=== PATIENT | female | born 2000 | race Caucasian/White ===

== ENCOUNTER 2021-03-15 08:00 | Outpatient (CLI) | payer MEDICAID, OTHER ==
[2021-03-15 12:45] LABS: BASOPHILS # (AUTO) 0.1 10^3/uL (0.0-0.1); BASOPHILS % (AUTO) 0.5 %; EOSINOPHILS # (AUTO) 0.3 10^3/uL (0.0-0.7); EOSINOPHILS % (AUTO) 2.4 %; HCT - HEMATOCRIT 40.7 % (37.0-47.0); HGB - HEMOGLOBIN 13.6 g/dL (12.0-16.0); LYMPHOCYTES # (AUTO) 3.2 10^3/uL (1.5-3.5); LYMPHOCYTES % (AUTO) 24.3 %; MEAN CORPUSCULAR HEMOGLOBIN 28.2 pg (27.0-31.0); MEAN CORPUSCULAR HGB CONC 33.4 g/dL (32.0-36.0); MEAN CORPUSCULAR VOLUME 84.4 fL (81.0-99.0); MEAN PLATELET VOLUME 10.6 fL (7.9-10.8); MONOCYTES # (AUTO) 0.7 10^3/uL (0.0-1.0); MONOCYTES % (AUTO) 5.4 %; NEUTROPHILS # (AUTO) 8.8 10^3/uL (1.5-6.6); NEUTROPHILS % (AUTO) 66.8 %; PLT - PLATELET COUNT 369 10^3/uL (130-450); RED BLOOD COUNT 4.82 10^6/uL (4.20-5.40); RED CELL DISTRIBUTION WIDTH 13.5 % (12.0-15.0); WHITE BLOOD COUNT 13.1 x10^3/uL (4.8-10.8)
[2021-03-15 12:58] LABS: ALBUMIN 4.7 g/dL (3.2-5.5); ALBUMIN/GLOBULIN RATIO 1.7 (1.0-2.2); ALKALINE PHOSPHATASE 59 IU/L (42-121); ALT ALANINE AMINOTRANSFERASE 27 IU/L (10-60); AST ASPARTATE AMINOTRANSFERASE 21 IU/L (10-42); BUN - BLOOD UREA NITROGEN 10 mg/dL (6-20); CALCIUM 9.3 mg/dL (8.5-10.3); CARBON DIOXIDE - CO2 25 mmol/L (21-32); CHLORIDE 100 mmol/L (101-111); CHOLESTEROL 166 mg/dL; CREATININE 0.8 mg/dL (0.4-1.0); GFR - MDRD 91 (>89); GLUCOSE 92 mg/dL (70-100); HDL CHOLESTEROL 33 mg/dL; LDL CHOLESTEROL,CALCULATED 98 mg/dL; SODIUM 137 mmol/L (135-145); TOTAL PROTEIN 7.5 g/dL (6.7-8.2); TRIGLYCERIDES 174 mg/dL; VLDL CHOLESTEROL 35 mg/dL
[2021-03-15 13:05] LABS: CREATININE,URINE 282.6 mg/dL; MICROALBUM/CREATININE RATIO,UR 7.1 ug/mg (<30.0)
[2021-03-15 13:06] LABS: THYROID STIMULATING HORMONE 2.44 uIU/mL (0.34-5.60)
[2021-03-15 13:46] LABS: ESTIMATED AVERAGE GLUCOSE 108 mg/dL (70-100); HEMOGLOBIN A1c% 5.4 % (4.27-6.07)
== END 2021-03-15 23:59 | disposition home or self-care (01) ==
LOC: LAB.N 08:00
PROVIDERS: ATTEND Family Medicine
DX: E88.81 Metabolic syndrome and other insulin resistance (principal); F41.9 Anxiety disorder, unspecified; F32.9 Major depressive disorder, single episode, unspecified
CPT/HCPCS: 36415; 80053; 80061; 82043; 82570; 83036; 83721; 84443; 85025

== ENCOUNTER 2021-07-02 08:00 | Outpatient (CLI) | payer OTHER ==
--- NOTE | 2021-07-02 09:43 | XRAY Report ---
PROCEDURE: Ankle 2 View RT INDICATIONS: PAIN IN RIGHT ANKLE AND JOINTS OF RIGHT FOOT TECHNIQUE: 2 views of the ankle were acquired. COMPARISON: None FINDINGS: BONES: No acute, displaced fracture or dislocation. The ankle mortise is maintained on these nonstre ssed views. Small dorsal calcaneal enthesophyte. SOFT TISSUES: No focal abnormality. IMPRESSION: 1.No acute osseous abnormality. Reviewed by: Meet Hollingsworth MD on 07/02/2021 9:42 AM PDT Approved by: Meet Hollingsworth MD on 07/02/2021 9:42 AM PDT Station ID: [id number]
== END 2021-07-02 23:59 | disposition home or self-care (01) ==
LOC: DI.S 08:00
PROVIDERS: ATTEND Nurse Practitioner
DX: M25.571 Pain in right ankle and joints of right foot (principal)

== ENCOUNTER 2021-09-14 08:00 | Outpatient (CLI) | payer OTHER ==
--- NOTE | 2021-09-14 08:59 | XRAY Report ---
PROCEDURE: Foot 3 View RT INDICATIONS: R FOOT PX TECHNIQUE: 3 weightbearing views of the right foot were acquired. AP weightbearing view of both fee t. COMPARISON: March 06, 2010 FINDINGS: BONES: No acute, displaced fracture or dislocation. An accessory cuboid is seen. Small dorsal calcane al enthesophyte. SOFT TISSUES: No focal abnormality. IMPRESSION: 1.No acute osseous abnormality. Reviewed by: Meet Hollingsworth MD on 09/14/2021 8:58 AM PST Approved by: Meet Hollingsworth MD on 09/14/2021 8:58 AM PST Station ID: [id number]
--- NOTE | 2021-09-14 09:03 | XRAY Report ---
PROCEDURE: Ankle 3 View RT INDICATIONS: R ANKLE PX TECHNIQUE: 3 weightbearing views of the ankle were acquired. AP weightbearing view of both ankles. COMPARISON: July 02, 2021. FINDINGS: BONES: No acute, displaced fracture or dislocation. The ankle mortise is maintained. Mild osteophyto sis about the bilateral medial and lateral malleoli. Small right dorsal calcaneal enthesophyte. SOFT TISSUES: No focal abnormality. IMPRESSION: 1.No significant interval change. Magnetic resonance imaging may be helpful for further evaluation. Reviewed by: Meet Hollingsworth MD on 09/14/2021 9:01 AM [facility] Approved by: Meet Hollingsworth MD on 09/14/2021 9:01 AM [facility] Station ID: [id number]
== END 2021-09-14 23:59 | disposition home or self-care (01) ==
LOC: DI.N 08:00
PROVIDERS: ATTEND Physician Assistant
DX: M25.571 Pain in right ankle and joints of right foot (principal)

== ENCOUNTER 2021-11-26 15:44 | Emergency (ER) | payer OTHER ==
[2021-11-26 16:19] LABS: BASOPHILS # (AUTO) 0.1 10^3/uL (0.0-0.1); BASOPHILS % (AUTO) 0.4 %; EOSINOPHILS # (AUTO) 0.2 10^3/uL (0.0-0.7); EOSINOPHILS % (AUTO) 1.5 %; HCT - HEMATOCRIT 39.2 % (37.0-47.0); HGB - HEMOGLOBIN 13.3 g/dL (12.0-16.0); LYMPHOCYTES % (AUTO) 24.9 %; MEAN CORPUSCULAR HEMOGLOBIN 27.9 pg (27.0-31.0); MEAN CORPUSCULAR HGB CONC 33.9 g/dL (32.0-36.0); MEAN CORPUSCULAR VOLUME 82.2 fL (81.0-99.0); MEAN PLATELET VOLUME 9.7 fL (7.9-10.8); MONOCYTES # (AUTO) 0.6 10^3/uL (0.0-1.0); NEUTROPHILS # (AUTO) 8.2 10^3/uL (1.5-6.6); NEUTROPHILS % (AUTO) 67.7 %; PLT - PLATELET COUNT 343 10^3/uL (130-450); RED BLOOD COUNT 4.77 10^6/uL (4.20-5.40); RED CELL DISTRIBUTION WIDTH 13.1 % (12.0-15.0); WHITE BLOOD COUNT 12.1 x10^3/uL (4.8-10.8)
[2021-11-26] MEDS ORDERED: ONDANSETRON 4 MG/2 ML VIAL IVP STA (16:32)
[2021-11-26] MEDS ORDERED: SODIUM CHLORIDE 0.9% 1,000 ML IV STA (16:32)
[2021-11-26 16:33] LABS: ALBUMIN 4.4 g/dL (3.2-5.5); ALBUMIN/GLOBULIN RATIO 1.4 (1.0-2.2); BILIRUBIN,TOTAL 0.8 mg/dL (0.2-1.0); CALCIUM 9.3 mg/dL (8.5-10.3); CREATININE 0.9 mg/dL (0.4-1.0); POTASSIUM 3.7 mmol/L (3.5-5.0); TOTAL PROTEIN 7.5 g/dL (6.7-8.2)
--- NOTE | 2021-11-26 16:35 | ED Physician Documentation ---
History of Present Illness - Stated complaint Stated Complaint: ABD PX,NAUSEA - Chief complaint Chief Complaint: Abd Pain - Additonal information Additional information: 21-year-old female presents emergency department for myriad of complaints. 1. She states that she has been persistently nauseated for a number of months but has not had any vomiting or fevers. About 3 weeks ago she began having lower abdominal cramping. Again no fevers nausea or vomiting but for the last 4 days She has frequently found herself incontinent of both urine and stool. Incontinence occurs when laughing, bearing down or squatting. 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 She has woken up in the middle the night and found that she has soiled her bed. She however has no back pain or saddle anesthesia and no history of similar in the past. Patient reports a history of PCOS as well as bipolar disorder. She is morbidly obese limiting exam. Review of Systems Constitutional: denies: Fever, Chills Eyes: reports: Reviewed and negative Nose: reports: Reviewed and negative Throat: reports: Reviewed and negative Cardiac: reports: Reviewed and negative Respiratory: reports: Reviewed and negative GI: reports: Abdominal Pain, Nausea, Other (Fecal incontinence at nighttime). denies: Vomiting, Constipation, Diarrhea : reports: Incontinent Skin: denies: Rash, Lesions PD PAST MEDICAL HISTORY - Allergies Allergies/Adverse Reactions: Allergies Allergy/AdvReac Type Severity Reaction Status Date / Time No Known Drug Allergies Allergy Verified 11/26/21 15:50 PD ED PE EXPANDED - General General: Alert, No acute distress, Well developed/nourished, Other (Morbid obesity) - Cardiac Cardiac: Regular Rate, Radial strong equal, Pedal strong equal, Cap refill < 2 sec. No: Murmur Present - Respiratory Respiratory: Clear to ausultation dieter. No: Distress, Labored - Abdomen Abdomen: Normal Bowel sounds. No: Tender to palpation (Abdominal exam limited by morbid obesity) - Rectal Rectal: Mortgage Field Inspector present, Other (Chaperoned genital and rectal exam reveals no loss of sensation. She has normal rectal tone and is able to bear down normally) - Back Back: Normal exam, Other (No back pain elicited. Normal gait). No: Vertebral tenderness, Soft tissue tenderness - Neuro Neuro: Alert and Oriented X 3, CNII-XII intact - GCS Eye Opening: Spontaneous Motor: Obeys Commands Verbal: Oriented Total: 15 Results - Vitals Vitals: Vital Signs - 24 hr 11/26/21 11/26/21 11/26/21 15:48 15:50 17:50 Temperature 36.9 C 36.9 C 36.8 C Heart Rate 73 73 70 Respiratory 16 16 16 Rate Blood Pressure 181/88 H 181/88 H 160/80 H O2 Saturation 100 100 100 11/26/21 19:00 Temperature 36.8 C Heart Rate 70 Respiratory 16 Rate Blood Pressure 140/80 H O2 Saturation 100 Oxygen O2 Source Room air - Labs Labs: Laboratory Tests 11/26/21 11/26/21 11/26/21 16:09 16:09 16:49 WBC 12.1 H RBC 4.77 Hgb 13.3 Hct 39.2 MCV 82.2 MCH 27.9 MCHC 33.9 RDW 13.1 Plt Count 343 MPV 9.7 Neut # (Auto) 8.2 H Lymph # (Auto) 3.0 Becker # (Auto) 0.6 Eos # (Auto) 0.2 Baso # (Auto) 0.1 Absolute Nucleated RBC 0.00 Nucleated RBC % 0.0 Sodium 139 Potassium 3.7 Chloride 105 Carbon Dioxide 25 Anion Gap 9.0 BUN 10 Creatinine 0.9 Estimated GFR (MDRD) 79 L Glucose 91 Calcium 9.3 Total Bilirubin 0.8 AST 19 ALT 25 Alkaline Phosphatase 54 Total Protein 7.5 Albumin 4.4 Globulin 3.1 Albumin/Globulin Ratio 1.4 Lipase 26 Urine Color YELLOW Urine Clarity CLEAR Urine pH 5.5 Ur Specific [place] >=1.030 H Urine Protein NEGATIVE Urine Glucose (UA) NEGATIVE Urine Ketones NEGATIVE Urine Occult Blood NEGATIVE Urine Nitrite NEGATIVE Urine Bilirubin NEGATIVE Urine Urobilinogen 0.2 (NORMAL) Ur Leukocyte Esterase NEGATIVE Ur Microscopic Review NOT INDICATED Urine Culture Comments NOT INDICATED Urine HCG, Qual NEGATIVE - Rads (name of study) CT abd Radiology: Final report received (CT abdomen pelvis without acute abnormalities. Normal appendix. No obstructive uropathy. Status post cholecystectomy.) PD MEDICAL DECISION MAKING - ED course Complexity details: reviewed results, re-evaluated patient, d/w patient ED course: 21-year-old female who is morbidly obese presents the emergency department for evaluation of a few weeks lower pelvic cramping but over the last 4 to 5 days has had urinary incontinence and stool incontinence though no saddle anesthesia or fevers. Urinary and fecal incontinence is not consistent with a cauda equina given lack of back pain and normal rectal tone and lack of saddle anesthesia on exam. Screening labs including a urine showed no signs of infection. Abdominal exam was fairly limited given her body habitus and a CT scan was performed and did not show any obvious findings. I suspect that the cause of her urinary incontinence as well as some fecal incontinence is likely pelvic floor dysfunction. We discussed that moderate weight loss may be helpful. I recommended initiation of more frequent urination and practicing Kegel exercises. She will schedule follow-up with her primary care provider but may benefit from referral to a assistant office manager who specializes in pelvic floor dysfunction. Emergent and worrisome return precautions discussed. Departure - Departure Disposition: Home, Self Care Clinical Impression: Urinary incontinence Qualifiers: Urinary Incontinence type: unspecified incontinence Qualified Code(s): R32 - Unspecified urinary incontinence Condition: Stable Record reviewed to determine appropriate education?: Yes Instructions: ED Bladder Instability Female, Exercises Kegel Follow-Up: Catalina Traore ARNP [Primary Care Provider] - Comments: [place] you were seen today in the emergency department for lower pelvic cramping and 4 to 5 days of urinary and stool incontinence. At the bedside you did not have any numbness or tingling in your genital or rectal area. Because of this it is extremely unlikely that you have a problem with your spinal cord. Your screening labs today were essentially normal. There is no infection in your urine. The CT of your abdomen also did not show any worrisome findings. I suspect that the cause of your urinary and stool incontinence may be related to week muscles within your pelvic area. Moderate weight loss may also help reduce the incontinence. I do recommend that you attempt to avoid more frequently right now than you otherwise would. Practicing the Kegel exercises as discussed can be helpful however your primary care doctor may wish to make a referral for you to a assistant office manager that specializes in female urinary incontinence or pelvic floor dysfunction. If at any point you develop fevers, have numbness or tingling in your genital area or sudden severe back pain or leg weakness then please return immediately to the ER for a second evaluation.
[2021-11-26 16:55] LABS: GLUCOSE, URINE (UA) NEGATIVE (NEGATIVE); KETONES,URINE (UA) NEGATIVE (NEGATIVE); LEUKOCYTE ESTERASE, URINE NEGATIVE (NEGATIVE); NITRITE,URINE NEGATIVE (NEGATIVE); OCCULT BLOOD,URINE NEGATIVE (NEGATIVE); PH,URINE 5.5 PH (5.0-7.5); PROTEIN,URINE NEGATIVE (NEGATIVE); UROBILINOGEN,URINE 0.2 (NORMAL) E.U./dL (NORMAL)
[2021-11-26 17:02] LABS: BILIRUBIN,URINE NEGATIVE (NEGATIVE); CLARITY,URINE CLEAR (CLEAR); HCG UR QUAL NEGATIVE; ICTOTEST,URINE NEGATIVE
[2021-11-26] MEDS ORDERED: IOVERSOL 320 100 ML VIAL IVP ONE ×2 (18:06→18:24)
--- NOTE | 2021-11-26 19:20 | CT Report ---
PROCEDURE: Abdomen/Pelvis W INDICATIONS: pelvic cramping, Urinary and fecal incontinence. CONTRAST: IV CONTRAST: Optiray 320 ml: 100 PO CONTRAST: *NO PO CONTRAST TECHNIQUE: After the administration of weight appropriate dose of intravenous contrast, 5 mm thick sections acqu ired from the diaphragms to the symphysis. 5 mm thick coronal and sagittal reformats were acquired. For radiation dose reduction, the following was used: automated exposure control, adjustment of mA and/or kV according to patient size. COMPARISON: None. FINDINGS: Image quality: Excellent. ABDOMEN: Lung bases: Lung bases are clear. Heart size is normal. Solid organs: Liver and spleen are normal in size and enhancement. Gallbladder is surgically absent . Biliary system is non dilated. Pancreas enhances normally. No adrenal nodules. Kidneys demonstr ate normal size and enhancement, without hydronephrosis. Peritoneum and bowel: Bowel loops demonstrate normal wall thickness and caliber. No free fluid or a ir. Normal appendix. Nodes and vessels: No retroperitoneal or mesenteric adenopathy by size criteria. Aorta and inferior vena cava are normal in size. Miscellaneous: No ventral hernias. PELVIS: Genitourinary: Bladder wall thickness is normal. Miscellaneous: No inguinal hernias or adenopathy. Bones: No suspicious bony lesions. No vertebral body compression fractures. IMPRESSION: CT abdomen and pelvis without acute abnormalities. Normal appendix. No obstructive uropa thy. Status post cholecystectomy. Reviewed by: Elver Luevano MD on 11/26/2021 7:18 PM PST Approved by: Elver Luevano MD on 11/26/2021 7:18 PM PST Station ID: [id number]
[2021-11-26 20:32] VITALS: BP 138/82
== END 2021-11-26 20:31 | disposition home or self-care (01) ==
LOC: ED 15:44
DX: R32 Unspecified urinary incontinence (principal); R15.9 Full incontinence of feces
CPT/HCPCS: 36415; 51701; 74177; 80053; 81003; 81025; 83690; 85025; 96374; 99284; Q9967; 81001; 87086

== ENCOUNTER 2022-01-06 06:30 | Day surgery (SDC) | payer OTHER ==
[~2022-01-06 06:30] MED LIST: ACETAMINOPHEN 500 MG TABLET PO ONE; CELECOXIB 100 MG CAPSULE PO ONE; GABAPENTIN 400 MG CAPSULE ONE
[2022-01-06 06:45] LABS: HCG UR QUAL NEGATIVE
[2022-01-06] MEDS ORDERED: LACTATED RINGERS 1,000 ML IV ONE (06:57)
--- NOTE | 2022-01-06 07:06 | ANESTHESIA ---
Pre-Anesthesia VS, & Labs - Diagnosis PCOS, menorrhagia, oligomenorrhea - Procedure IUD instertion, hysteroscopy, D&C, exam under anesthesia. endometrial biopsy Vital Signs: Temp Pulse Resp BP Pulse Ox 36.6 C 67 16 114/77 97 01/06/22 06:53 01/06/22 06:53 01/06/22 06:53 01/06/22 06:53 01/06/22 06:53 Height: 5 ft 7 in Weight (kg): 163.1 kg Body Mass Index: 56.3 BMI Classification: Morbidly Obese - NPO >8 hours - Is Patient ?: No Home Medications and Allergies Home Medications: Ambulatory Orders Buspirone HCl 15 mg PO BID 12/28/21 Famotidine 40 mg PO QPM 12/28/21 Ib-Jonathan 1 cap PO DAILY 12/28/21 Inulin/Cholecalciferol (D3) [Fiber Gummies-Vitamin D3] 1 each PO DAILY 12/28/21 Lurasidone HCl [Latuda] 40 mg PO DAILY 12/28/21 hydrOXYzine HCL [Hydroxyzine HCl] 25 - 50 mg PO QPM PRN 12/28/21 Buspirone HCl 15 mg PO BID 12/28/21 Famotidine 40 mg PO QPM 12/28/21 Ib-Jonathan 1 cap PO DAILY 12/28/21 Inulin/Cholecalciferol (D3) [Fiber Gummies-Vitamin D3] 1 each PO DAILY 12/28/21 Lurasidone HCl [Latuda] 40 mg PO DAILY 12/28/21 hydrOXYzine HCL [Hydroxyzine HCl] 25 - 50 mg PO QPM PRN 12/28/21 Allergies/Adverse Reactions: Allergies Allergy/AdvReac Type Severity Reaction Status Date / Time No Known Drug Allergies Allergy Verified 01/06/22 06:13 Anes History & Medical History - Anesthetic History Anesthesia Complications: reports: No previous complications - Medical History Cardiovascular: reports: Murmur (as child, unable to hear) Pulmonary: reports: None Gastrointestinal: reports: GERD, Other Urinary: reports: None Musculoskeletal: reports: None Endocrine/Autoimmune: reports: Other Psychosocial: reports: Anxiety (bipolar) History of Cancer?: No - Surgical History General: reports: Cholecystectomy, Other Eyes Ears Nose Throat (EENT): reports: Myringotomy (tubes), Other Gynecologic: Exam General: Alert, Oriented x3 Dental: WNL Mouth Opening: Can't Open Mouth Neck Mobility: Normal Mallampati classification: III Respiratory: Lungs clear Cardiovascular: Regular rate, Normal S1, Normal S2, No murmurs Plan Anesthesia Type: General Consent for Procedure(s) Verified and Reviewed: Yes Code Status: Attempt Resuscitation ASA classification: 3-Severe systemic disease Is this case an emergency?: No
[2022-01-06] MEDS ORDERED: HYDROmorphone 0.5 MG/0.5 ML SYRINGE IVP PRN (07:13)
[2022-01-06] MEDS ORDERED: ONDANSETRON 4 MG/2 ML VIAL IVP PRN (07:13)
[2022-01-06] MEDS ORDERED: ATROPINE ABBOJECT 1 MG/10 ML SYRINGE IVP PRN (07:13)
[2022-01-06] MEDS ORDERED: MORPHINE 2 MG/ML CARPUJECT IVP PRN (07:13)
[2022-01-06] MEDS ORDERED: ePHEDrine 50 MG/ML VIAL IVP PRN (07:13)
[2022-01-06] MEDS ORDERED: fentaNYL 100 MCG/2 ML VIAL IVP PRN (07:13)
[2022-01-06] MEDS ORDERED: NALOXONE 0.4 MG/ML VIAL IVP PRN (07:13)
[2022-01-06] MEDS ORDERED: PROPOFOL 500 MG/50 ML 500 MG/50 ML VIAL ONE (07:17)
[2022-01-06] MEDS ORDERED: MIDAZOLAM 2 MG/2 ML VIAL ONE (07:23)
[2022-01-06] MEDS ORDERED: LIDOCAINE 1% 50 ML MDV ONE (07:25)
[2022-01-06] MEDS ORDERED: LEVONORGESTREL 20 MCG/24H IUD IY ONE ×2 (07:25→08:19)
[2022-01-06] MEDS ORDERED: SUCCINYLCHOLINE 200 MG/10 ML VIAL ONE (07:35)
[2022-01-06] MEDS ORDERED: LIDOCAINE 2%-EPI 1:100000 20 ML MDV ONE (07:38)
[2022-01-06] MEDS ORDERED: BUPIVACAINE 0.25% PF 30 ML VIAL ONE (07:38)
[2022-01-06] MEDS ORDERED: LACTATED RINGERS 1,000 ML IV SCH (08:00)
[2022-01-06] MEDS ORDERED: BUPIVACAINE 0.25% PF 30 ML VIAL SUBQ ONE (08:18)
[2022-01-06] MEDS ORDERED: LIDOCAINE 2%-EPI 1:100000 20 ML MDV SUBQ ONE (08:19)
[2022-01-06] MEDS ORDERED: DEXAMETHASONE 4 MG/ML VIAL ONE (08:27)
[2022-01-06] MEDS ORDERED: LACTATED RINGERS 500 ML IV ONE (08:42)
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
[2022-01-06 09:28] VITALS: BP 128/83
--- NOTE | 2022-01-06 10:23 | ANESTHESIA POST OP EVALUATION ---
Anesthesia Post Eval - Post Anesthesia Eval Vitals: Last Vital Signs Temp 36.5 C 01/06/22 09:19 Pulse 79 01/06/22 09:27 Resp 16 01/06/22 09:27 BP 128/83 H 01/06/22 09:27 Pulse Ox 95 01/06/22 09:27 CV Function Including HR & BP: Stable Pain Control: Satisfactory Nausea & Vomiting: Negative Mental Status: Baseline Respiratory Status: Airway Patent Hydration Status: Satisfactory Anesthesia Complications: None
== END 2022-01-06 06:31 | disposition home or self-care (01) ==
LOC: SDS 06:30
PROVIDERS: ATTEND Obstetrics & Gynecology
PROC: 0UH97HZ Insertion of Contraceptive Device into Uterus, Via Natural or Artificial Opening (ICD-10-PCS; 2022-01-06)
PROC: 0UDB7ZZ Extraction of Endometrium, Via Natural or Artificial Opening (ICD-10-PCS; principal; 2022-01-06 07:30)
DX: N91.5 Oligomenorrhea, unspecified (principal); N92.4 Excessive bleeding in the premenopausal period; Z30.430 Encounter for insertion of intrauterine contraceptive device; E66.01 Morbid (severe) obesity due to excess calories; Z68.43 Body mass index [BMI] 50.0-59.9, adult
CPT/HCPCS: 58120; 58300; 81025; A9270; J0330; J7120; J7298

== ENCOUNTER 2022-09-18 15:23 | Emergency (ER) | payer OTHER ==
--- OUTSIDE RECORDS SUMMARY | 2022-09-18 16:28 | EXTERNAL MEDICAL SUMMARY RPT | Continuity of Care Document ---
:2000 Author Organization [facility] [address] [place] [address] Phone Care Team Providers Name Role Phone Catalina Caceres Unavailable Unavailable Allergies No information. Encounters No information. Functional Status No information. Immunizations No information. Medications date description facility 2022-07-12 00:00 lurasidone All 2022-07-12 00:00 lurasidone All 2022-07-12 00:00 lurasidone All 2022-07-12 00:00 [facility] Problems No information. Procedures No information. Results/Labs No information. Social History No information. Vital Signs No information.
[2022-09-18] MEDS ORDERED: KETOROLAC 60 MG/2 ML VIAL IM STA (17:31)
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
[2022-09-18 19:10] VITALS: BP 128/82
[2022-09-18] MEDS ORDERED: methocarbamoL 500 MG TABLET PO STA (19:36)
--- NOTE | 2022-09-18 19:36 | Ultrasound Report ---
PROCEDURE: Pelvic Complete INDICATIONS: IUD placement confirmation TECHNIQUE: Real-time transabdominal scanning was performed of the pelvic organs, with image documentation. COMPARISON: None FINDINGS: Decreased quality of the exam. Patient declined transvaginal imaging. Uterus: Uterus is anteverted and normal in size at 8.0 x 3.1 x 3.6 cm. The myometrium is homogeneous . An IUD is noted in expected location at the fundal endometrium. Endometrium measures approximately 4 mm in combined thickness. Ovaries: Transabdominal appearance of the ovaries is within normal limits. The right ovary measures 4.1 x 3.1 x 2.7 cm for a volume of 17.9 cc. The left ovary measures 1.9 x 1.9 x 1.8 cm for a volume o f 3.4 cc. Follicles were not able to be identified. Other: No free pelvic fluid. No suspicious adnexal mass. IMPRESSION: 1. IUD in expected location on this transabdominal exam. 2. Normal uterus and ovaries by transabdominal imaging. 3. Preliminary results given by the chief minister to the ordering provider immediately following the [facility]. Reviewed by: Bri Jarvis MD on 09/18/2022 7:34 PM PST Approved by: Bri Jarvis MD on 09/18/2022 7:34 PM PST Station ID: [id number]
== END 2022-09-18 19:40 | disposition home or self-care (01) ==
LOC: ED 15:23
DX: T83.89XA Other specified complication of genitourinary prosthetic devices, implants and grafts, initial encounter (principal); T76.21XA Adult sexual abuse, suspected, initial encounter; M54.50 Low back pain, unspecified
CPT/HCPCS: 76856; 96372; 99283; 99284; A9270

== ENCOUNTER 2022-09-26 13:36 | Outpatient (CLI) | payer OTHER ==
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
== END 2022-09-26 13:37 | disposition home or self-care (01) ==
LOC: DI 13:36
PROVIDERS: ATTEND Physician Assistant
DX: S20.223A Contusion of bilateral back wall of thorax, initial encounter (principal)

== ENCOUNTER 2022-10-11 09:43 | Emergency (ER) | payer OTHER ==
[2022-10-11 10:17] LABS: BILIRUBIN,URINE NEGATIVE (NEGATIVE); GLUCOSE, URINE (UA) NEGATIVE (NEGATIVE); KETONES,URINE (UA) NEGATIVE (NEGATIVE); LEUKOCYTE ESTERASE, URINE NEGATIVE (NEGATIVE); NITRITE,URINE NEGATIVE (NEGATIVE); OCCULT BLOOD,URINE LARGE (NEGATIVE); PH,URINE 7.5 PH (5.0-7.5); PROTEIN,URINE NEGATIVE (NEGATIVE); UROBILINOGEN,URINE 0.2 (NORMAL) E.U./dL (NORMAL)
[2022-10-11 10:18] LABS: CLARITY,URINE HAZY (CLEAR)
[2022-10-11 10:19] LABS: HCG UR QUAL NEGATIVE
[2022-10-11 10:24] LABS: BACTERIA,URINE Few /HPF (None Seen); SQUAMOUS EPITHELIAL CELL,UR MOD Squamous (<= Few); WBC,URINE 0-3 /HPF (0-5)
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
[2022-10-11 11:23] VITALS: BP 143/84
== END 2022-10-11 11:23 | disposition home or self-care (01) ==
LOC: ED 09:43
DX: M54.50 Low back pain, unspecified (principal); E66.01 Morbid (severe) obesity due to excess calories; Z68.43 Body mass index [BMI] 50.0-59.9, adult
CPT/HCPCS: 81001; 81003; 81025; 87086; 99283; 99284

== ENCOUNTER 2023-04-19 08:34 | Outpatient (CLI) | payer OTHER ==
[2023-04-19 08:48] LABS: BASOPHILS # (AUTO) 0.1 10^3/uL (0.0-0.1); BASOPHILS % (AUTO) 0.5 %; EOSINOPHILS # (AUTO) 0.8 10^3/uL (0.0-0.7); EOSINOPHILS % (AUTO) 6.1 %; HCT - HEMATOCRIT 42.4 % (37.0-47.0); HGB - HEMOGLOBIN 14.2 g/dL (12.0-16.0); LYMPHOCYTES # (AUTO) 2.2 10^3/uL (1.5-3.5); LYMPHOCYTES % (AUTO) 17.3 %; MEAN CORPUSCULAR HEMOGLOBIN 28.1 pg (27.0-31.0); MEAN CORPUSCULAR HGB CONC 33.5 g/dL (32.0-36.0); MEAN CORPUSCULAR VOLUME 83.8 fL (81.0-99.0); MEAN PLATELET VOLUME 9.4 fL (7.9-10.8); MONOCYTES # (AUTO) 0.7 10^3/uL (0.0-1.0); MONOCYTES % (AUTO) 5.8 %; NEUTROPHILS # (AUTO) 8.8 10^3/uL (1.5-6.6); PLT - PLATELET COUNT 355 10^3/uL (130-450); RED BLOOD COUNT 5.06 10^6/uL (4.20-5.40); RED CELL DISTRIBUTION WIDTH 13.6 % (12.0-15.0); WHITE BLOOD COUNT 12.5 x10^3/uL (4.8-10.8)
[2023-04-19 09:09] LABS: ALBUMIN 4.2 g/dL (3.2-5.5); ALBUMIN/GLOBULIN RATIO 1.6 (1.0-2.2); ALKALINE PHOSPHATASE 60 IU/L (42-121); ALT ALANINE AMINOTRANSFERASE 16 IU/L (10-60); AST ASPARTATE AMINOTRANSFERASE 12 IU/L (10-42); BILIRUBIN,TOTAL 0.6 mg/dL (0.2-1.0); BUN - BLOOD UREA NITROGEN 12 mg/dL (6-20); CALCIUM 9.4 mg/dL (8.5-10.3); CARBON DIOXIDE - CO2 24 mmol/L (21-32); CHLORIDE 107 mmol/L (101-111); CHOL/HDL RATIO 4.1 (<4.4); CHOLESTEROL 132 mg/dL; CREATININE 0.8 mg/dL (0.6-1.3); GFR - MDRD 90 (>89); GLUCOSE 99 mg/dL (74-104); HDL CHOLESTEROL 32 mg/dL; LDL CHOLESTEROL,CALCULATED 80 mg/dL; LDL/HDL RATIO 2.5 (<4.4); POTASSIUM 3.9 mmol/L (3.5-4.5); SODIUM 137 mmol/L (135-145); TOTAL PROTEIN 6.9 g/dL (6.4-8.9); TRIGLYCERIDES 100 mg/dL (48-352); VLDL CHOLESTEROL 20 mg/dL
[2023-04-19 14:14] LABS: ESTIMATED AVERAGE GLUCOSE 111 mg/dL (70-100); HEMOGLOBIN A1c% 5.5 % (4.27-6.07)
== END 2023-04-19 08:35 | disposition home or self-care (01) ==
LOC: LAB 08:34
PROVIDERS: ATTEND Registered Nurse
DX: E88.81 Metabolic syndrome and other insulin resistance (principal); Z13.228 Encounter for screening for other metabolic disorders; Z13.220 Encounter for screening for lipoid disorders; Z13.29 Encounter for screening for other suspected endocrine disorder; Z13.0 Encounter for screening for diseases of the blood and blood-forming organs and certain disorders involving the immune mechanism
CPT/HCPCS: 36415; 80053; 80061; 83036; 83721; 84443; 85025

== ENCOUNTER 2023-05-28 08:47 | Emergency (ER) | payer OTHER ==
[2023-05-28 09:16] VITALS: BP 152/95; O2SAT 98
--- NOTE | 2023-05-28 09:20 | ED Physician Documentation ---
PD HPI URI - Stated complaint Stated Complaint: COUGH,SOA,SWEATS - Chief complaint Chief Complaint: Resp - History obtained from History obtained from: Patient - History of Present Illness Timing - onset: How many days ago (5) Timing duration: Days (5) Timing details: Gradual onset, Still present Associated symptoms: Nasal congestion, Productive cough Contributing factors: No: Sick contact Improves by: Rest, Medication Worsened by: Activity Similar symptoms before: Diagnosis (OM pneumonia) Recently seen: Not recently seen - Additional information Additional information: 23-year-old Ernie Schuler has a 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 She has developed an upper respiratory tract infection about 5 days ago with cough and sputum production. She is coughing up yellow-green phlegm. She felt well enough to try to go to work and she had a coughing paroxysm lasting 30 minutes and was sent home. She has not had improvement over the following days. She is immunized against COVID Review of Systems Constitutional: reports: Myalgias. denies: Fever Ears: reports: Ear pain (Chronic) Nose: reports: Congestion Throat: reports: Sore throat Cardiac: denies: Chest pain / pressure, Palpitations Respiratory: reports: Cough. 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:  HEENT: Myringotomy (tubes), Other - Present Medications Home Medications: Ambulatory Orders Medication Instructions Recorded Confirmed Buspirone HCl 15 mg PO BID 12/28/21 10/11/22 Famotidine 40 mg PO QPM 12/28/21 10/11/22 Ib-Jonathan 1 cap PO DAILY 12/28/21 10/11/22 Inulin/Cholecalciferol (D3) [Fiber 1 each PO DAILY 12/28/21 10/11/22 Gummies-Vitamin D3] Lurasidone HCl [Latuda] 40 mg PO DAILY 12/28/21 10/11/22 hydrOXYzine HCL [Hydroxyzine HCl] 25 - 50 mg PO QPM PRN 12/28/21 10/11/22 Acetaminophen [Acetaminophen Extra 1,000 mg PO Q8H PRN #60 tablet 01/06/22 10/11/22 Strength] Docusate Sodium 100Mg Capsule 100 - 200 mg PO BID PRN #60 cap 01/06/22 10/11/22 [Colace 100Mg Capsule] Ibuprofen [Motrin] 600 mg PO Q6H PRN #60 tab 01/06/22 10/11/22 oxyCODONE [Roxicodone] 2.5 - 5 mg PO Q4H PRN #5 tablet 01/06/22 methocarbamoL [Robaxin] 500 mg PO Q6H PRN #10 tablet 09/18/22 10/11/22 methylPREDNISolone [Medrol] 4 mg PO DAILY #1 tab 10/11/22 Amox/Clav 875/125 [Augmentin] 1 each PO Q12H #20 tablet 05/28/23 Benzonatate [Tessalon] 100 - 200 mg PO TID #30 cap 05/28/23 - Allergies Allergies/Adverse Reactions: Allergies Allergy/AdvReac Type Severity Reaction Status Date / Time No Known Drug Allergies Allergy Verified 05/28/23 09:08 - Social History Does the pt smoke?: No Smoking Status: Never smoker Does the pt drink ETOH?: No Does the pt have substance abuse?: No - POLST Patient has POLST: No PD ED PE NORMAL - Vitals Vital signs reviewed: Yes (Hypertensive) - General General: Alert and oriented X 3, No acute distress, Well developed/nourished - HEENT HEENT: Atraumatic, PERRL, EOMI, Other (The left TM has significant tympanosclerosis but without inflammation. 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 parapertussis DNA (PCR) NOT DETECTED Nasal Coronavir 229E PCR NOT DETECTED Nasal Coronavir HKU1 PCR NOT DETECTED Nasal Coronavir NL63 PCR NOT DETECTED Nasal Coronavir OC43 PCR NOT DETECTED Nasal Enterovir/Rhinovir PCR NOT DETECTED Nasal Influenza B PCR NOT DETECTED Nasal Influenza A PCR NOT DETECTED Nasal Parainfluen 1 PCR NOT DETECTED Nasal Parainfluen 2 PCR NOT DETECTED Nasal Parainfluen 3 PCR NOT DETECTED Nasal Parainfluen 4 PCR NOT DETECTED Nasal RSV (PCR) NOT DETECTED Nasal B.pertussis DNA PCR NOT DETECTED Nasal C.pneumoniae (PCR) NOT DETECTED Aleksandr Human Metapneumo PCR NOT DETECTED Nasal M.pneumoniae (PCR) NOT DETECTED Nasal SARS-CoV-2 (PCR) NOT DETECTED - Rads (name of study) Chest Relevant Findings:: Prelim report reviewed (Impression: No acute cardiopulmonary findings.), EMP independent interpretation of test PD Medical Decision Making - ED course Complexity details: considered differential, d/w patient ED course: 23-year-old Ernie Schuler has a URI productive of yellow phlegm and she is having coughing paroxysms bad enough to prevent her from working. She has a history of ENT infections and today on exam appears to have infection in the right middle ear. I did hear rhonchi in the right base on exam chest x-ray was without evidence of infiltrate. The patient was administered dexamethasone here in the emergency department and had some improvement in her general overall feeling prior to discharge. We will treat for otitis the patient has been on Augmentin a number of times successfully previously. Departure - Departure Disposition: 01 Home, Self Care Clinical Impression: Otitis media Qualifiers: Otitis media type: suppurative Chronicity: acute Laterality: right Recurrence: recurrent Spontaneous tympanic membrane rupture: without spontaneous rupture Qualified Code(s): H66.004 - Acute suppurative otitis media without spontaneous rupture of ear drum, recurrent, right ear Condition: Stable Instructions: ED Otitis Media Acute Adult Follow-Up: Catalina Traore ARNP [Primary Care Provider] - Prescriptions: Amox/Clav 875/125 [Augmentin] 1 each PO Q12H #20 tablet Benzonatate [Tessalon] 100 - 200 mg PO TID #30 cap Comments: Ernie, today it looks like your cough is related to middle ear infection in the right middle ear. You have been given a dose of dexamethasone and this should help with your general symptoms. We will prescribe some Augmentin to [facility] [place]. In addition I have prescribed some cough suppressant. I have given you a note for work for 3 days. Our expectation is continued improvement. Forms: Activity restrictions
[2023-05-28] MEDS: CHERRY SYRUP 10 ML UDC PO ONE (10:10)
[2023-05-28] MEDS: DEXAMETHASONE 10 MG/ML VIAL PO STA (10:11)
--- NOTE | 2023-05-28 10:12 | XRAY Report ---
PROCEDURE: Chest 1 View X-Ray INDICATIONS: RLL rhonchi TECHNIQUE: One view of the chest was acquired. COMPARISON: None FINDINGS: Surgical changes and devices: None. Lungs and pleura: No pleural effusions or pneumothorax. Lungs are clear. Mediastinum: Mediastinal contours appear normal. Heart size is normal. Bones and chest wall: No suspicious bony lesions. Overlying soft tissues appear unremarkable. IMPRESSION: No acute cardiopulmonary findings Reviewed by: Laz Hickey MD on 05/28/2023 9:11 AM DENISE Approved by: Laz Hickey MD on 05/28/2023 9:11 AM [facility] Station ID: [id number]
[2023-05-28 10:39] LABS: B. PARAPERTUSSIS- RESP PCR PAN NOT DETECTED; B. PERTUSSIS- RESP PCR PANEL NOT DETECTED; C. PNEUMONIAE- RESP PCR PANEL NOT DETECTED; CORONAVIRUS 229E-RESP PCR NOT DETECTED; CORONAVIRUS HKU1-RESP PCR NOT DETECTED; CORONAVIRUS NL63-RESP PCR NOT DETECTED; CORONAVIRUS OC43-RESP PCR NOT DETECTED; HUMAN METAPNEUMOVIRUS NOT DETECTED; INFLUENZA A- RESP PCR PANEL NOT DETECTED; INFLUENZA B - RESP PCR PANEL NOT DETECTED; M. PNEUMONIAE- RESP PCR PANEL NOT DETECTED; PARAINFLUENZA VIRUS 1 NOT DETECTED; PARAINFLUENZA VIRUS 2 NOT DETECTED; PARAINFLUENZA VIRUS 3 NOT DETECTED; PARAINFLUENZA VIRUS 4 NOT DETECTED; RHINOVIRUS/ENTEROVIRUS NOT DETECTED; RSV- RESP PCR PANEL NOT DETECTED; SARS-CoV-2 -RESP PCR PANEL NOT DETECTED
== END 2023-05-28 11:21 | disposition home or self-care (01) ==
LOC: ED 08:47
DX: H66.004 Acute suppurative otitis media without spontaneous rupture of ear drum, recurrent, right ear (principal); Z20.822 Contact with and (suspected) exposure to COVID-19; Z79.899 Other long term (current) drug therapy
CPT/HCPCS: 87633; 99284

== ENCOUNTER 2023-07-12 14:24 | Emergency (ER) | payer OTHER ==
--- NOTE | 2023-07-12 16:41 | ED Physician Documentation ---
PD HPI LOWER EXT INJURY - Stated complaint Stated Complaint: LT LEG INJ - Chief complaint Chief Complaint: Ext Problem - History obtained from History obtained from: Patient - History of Present Illness PD HPI LOW EXT INJURY LOCATION: Left, Knee Type of injury: Twist Where injury occurred: Work - Additional information Additional information: 20-year-old female presented with left knee pain after twisting it while taking a step yesterday while at work. She had medial left knee pain. She was seen by her onsite clinic and they advised to follow-up if she still had pain today. The patient states that she still has pain today that she is here in the ER. She has been icing occasionally, taking ibuprofen and Tylenol without relief in her symptoms. She is able to walk on it though it is uncomfortable. She Denies any other concerns today. 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:  HEENT: Myringotomy (tubes), Other - Present Medications Home Medications: Ambulatory Orders Medication Instructions Recorded Confirmed Buspirone HCl 15 mg PO BID 12/28/21 07/12/23 Lurasidone HCl [Latuda] 40 mg PO DAILY 12/28/21 07/12/23 Acetaminophen [Acetaminophen Extra 1,000 mg PO Q8H PRN #60 tablet 01/06/22 07/12/23 Strength] Ibuprofen [Motrin] 600 mg PO Q6H PRN #60 tab 01/06/22 07/12/23 Prazosin [Minipress] 1 mg PO DAILY 07/12/23 07/12/23 - Allergies Allergies/Adverse Reactions: Allergies Allergy/AdvReac Type Severity Reaction Status Date / Time No Known Drug Allergies Allergy Verified 05/28/23 09:08 - Social History Does the pt smoke?: No Smoking Status: Never smoker Does the pt drink ETOH?: No Does the pt have substance abuse?: No - POLST Patient has POLST: No PD ED PE NORMAL - Vitals Vital signs reviewed: Yes - General General: Alert and oriented X 3, No acute distress, Well developed/nourished - Derm Derm: Normal color, Warm and dry - Extremities Extremities: No deformity, No edema, No calf tenderness / cord, Other (Generalized left knee tenderness, possible trace swelling, no erythema, no deformity.). No: No tenderness to palpate, Normal ROM s pain (No laxity) Results - Vitals Vitals: Vital Signs - 24 hr 07/12/23 14:41 Temperature 37.1 C Heart Rate 89 Respiratory 16 Rate Blood Pressure 142/90 H O2 Saturation 96 Oxygen O2 Source Room air PD Medical Decision Making - ED course Complexity details: considered differential, d/w patient ED course: 20-year-old female presented with left knee pain after stepping awkwardly yesterday. I discussed with patient that she may have sustained a sprain, less likely a complete ACL or other ligamentous tear, doubt meniscal injury though this remains in the differential. The patient's physical exam is reassuring, recommended cool compress, Dc wrap, ibuprofen and Tylenol as needed. Patient was given crutches though advised she can ambulate as tolerated. I have given her 2 days off work and she can follow-up with her primary doctor if ongoing symptoms. An x-ray is not indicated today. Departure - Departure Disposition: 01 Home, Self Care Clinical Impression: Left knee sprain Qualifiers: Encounter type: initial encounter Involved ligament of knee: unspecified ligament Qualified Code(s): S83.92XA - Sprain of unspecified site of left knee, initial encounter Condition: Good Instructions: ED Sprain Knee Collateral Ligaments Comments: You likely have a knee sprain. I recommend light compression, ibuprofen and Tylenol cool compress. Symptoms usually improve in the next few days. You may need physical therapy however if you have recurrent issues. Follow-up with your primary doctor as needed. Forms: PCP List, Activity restrictions
[2023-07-12 17:22] VITALS: BP 133/84; O2SAT 95
== END 2023-07-12 17:18 | disposition home or self-care (01) ==
LOC: ED 14:24
DX: S83.92XA Sprain of unspecified site of left knee, initial encounter (principal); X50.1XXA Overexertion from prolonged static or awkward postures, initial encounter; Y99.0 Civilian activity done for income or pay
CPT/HCPCS: 1040M; 99283

== ENCOUNTER 2023-07-23 11:32 | Emergency (ER) | payer OTHER ==
--- NOTE | 2023-07-23 13:08 | XRAY Report ---
PROCEDURE: Knee 3 View LT INDICATIONS: pain TECHNIQUE: 3 views of the knee(s) were acquired. COMPARISON: None. FINDINGS: Bones: No fractures or dislocations. No suspicious bony lesions. Soft tissues: No knee joint effusion. No suspicious soft tissue calcifications or masses. IMPRESSION: No acute bony abnormality. Reviewed by: Bri Jarvis MD on 07/23/2023 1:07 PM PST Approved by: Bri Jarvis MD on 07/23/2023 1:07 PM [id number] Station ID: [id number]
--- NOTE | 2023-07-23 13:20 | ED Physician Documentation ---
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:  HEENT: Myringotomy (tubes), Other - Present Medications Home Medications: Ambulatory Orders Medication Instructions Recorded Confirmed Buspirone HCl 15 mg PO BID 12/28/21 07/23/23 Lurasidone HCl [Latuda] 40 mg PO DAILY 12/28/21 07/23/23 Acetaminophen [Acetaminophen Extra 1,000 mg PO Q8H PRN #60 tablet 01/06/22 07/23/23 Strength] Ibuprofen [Motrin] 600 mg PO Q6H PRN #60 tab 01/06/22 07/23/23 Prazosin [Minipress] 1 mg PO DAILY 07/12/23 07/23/23 - Allergies Allergies/Adverse Reactions: Allergies Allergy/AdvReac Type Severity Reaction Status Date / Time No Known Drug Allergies Allergy Verified 07/23/23 11:48 - Social History Does the pt smoke?: No Smoking Status: Never smoker Does the pt drink ETOH?: No Does the pt have substance abuse?: No - POLST Patient has POLST: No Results - Vitals Vitals: Vital Signs - 24 hr 07/23/23 11:44 Temperature 36.6 C Heart Rate 67 Respiratory 15 Rate Blood Pressure 147/102 H O2 Saturation 97 Oxygen O2 Source Room air Departure - Departure Disposition: 01 Home, Self Care Clinical Impression: Left knee injury Condition: Stable Instructions: ED Knee Pain UKO Comments: IMPRESSION: No acute bony abnormality. Please continue with the knee immobilizer and crutches. I would recommend close follow-up with your primary care provider. You may need further evaluation of your knee if your symptoms are not improving such as an MRI or referral to physical therapy. Forms: PCP List, Activity restrictions
[2023-07-23 14:31] VITALS: BP 148/100; O2SAT 100
== END 2023-07-23 13:45 | disposition home or self-care (01) ==
LOC: ED 11:32
DX: S89.92XA Unspecified injury of left lower leg, initial encounter (principal); X50.1XXA Overexertion from prolonged static or awkward postures, initial encounter; Y99.0 Civilian activity done for income or pay; Z79.899 Other long term (current) drug therapy
CPT/HCPCS: 99283

== ENCOUNTER 2023-08-01 19:31 | Emergency (ER) | payer OTHER ==
[2023-08-01 20:46] LABS: CORONAVIRUS 229E-RESP PCR NOT DETECTED; CORONAVIRUS HKU1-RESP PCR NOT DETECTED; CORONAVIRUS NL63-RESP PCR NOT DETECTED; CORONAVIRUS OC43-RESP PCR NOT DETECTED; HUMAN METAPNEUMOVIRUS NOT DETECTED; INFLUENZA A- RESP PCR PANEL NOT DETECTED; INFLUENZA B - RESP PCR PANEL NOT DETECTED; PARAINFLUENZA VIRUS 1 NOT DETECTED; PARAINFLUENZA VIRUS 2 NOT DETECTED; PARAINFLUENZA VIRUS 3 NOT DETECTED; PARAINFLUENZA VIRUS 4 NOT DETECTED; RHINOVIRUS/ENTEROVIRUS DETECTED; SARS-CoV-2 -RESP PCR PANEL NOT DETECTED
[2023-08-01 20:47] LABS: B. PARAPERTUSSIS- RESP PCR PAN NOT DETECTED; B. PERTUSSIS- RESP PCR PANEL NOT DETECTED; C. PNEUMONIAE- RESP PCR PANEL NOT DETECTED; M. PNEUMONIAE- RESP PCR PANEL NOT DETECTED; RSV- RESP PCR PANEL NOT DETECTED
--- NOTE | 2023-08-01 22:08 | ED Physician Documentation ---
PD HPI URI - Stated complaint Stated Complaint: COUGH/RUNNY NOSE - Chief complaint Chief Complaint: General - History obtained from History obtained from: Patient - Additional information Additional information: HPI from patient. Patient c/o sore throat, cough, nasal congestion. Symptoms x 2-3 days. No exacerbating nor ameliorating factors. Multiple sick household contacts (two of whom are registered as ED patients at this time) Review of Systems Constitutional: reports: Myalgias, Fatigue Ears: denies: Ear pain Nose: reports: Rhinorrhea / runny nose, Congestion Throat: reports: Sore throat Cardiac: denies: Chest pain / pressure Respiratory: reports: Cough. 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:  HEENT: Myringotomy (tubes), Other - Present Medications Home Medications: Ambulatory Orders Medication Instructions Recorded Confirmed Buspirone HCl 15 mg PO BID 12/28/21 07/23/23 Lurasidone HCl [Latuda] 40 mg PO DAILY 12/28/21 07/23/23 Acetaminophen [Acetaminophen Extra 1,000 mg PO Q8H PRN #60 tablet 01/06/22 07/23/23 Strength] Ibuprofen [Motrin] 600 mg PO Q6H PRN #60 tab 01/06/22 07/23/23 Prazosin [Minipress] 1 mg PO DAILY 07/12/23 07/23/23 - Allergies Allergies/Adverse Reactions: Allergies Allergy/AdvReac Type Severity Reaction Status Date / Time No Known Drug Allergies Allergy Verified 08/01/23 19:36 - Social History Does the pt smoke?: No Smoking Status: Never smoker Does the pt drink ETOH?: No Does the pt have substance abuse?: No - POLST Patient has POLST: No PD ED PE NORMAL - Vitals Vital signs reviewed: Yes - General General: Alert and oriented X 3, No acute distress, Well developed/nourished - HEENT HEENT: Ears normal, Moist mucous membranes, Pharynx benign - Cardiac Cardiac: RRR, No murmur - Respiratory Respiratory: No respiratory distress, Clear bilaterally Results - Vitals Vitals: Oxygen O2 Source Room air - Labs Labs: Laboratory Tests 08/01/23 18:45 Nasal Adenovirus (PCR) NOT DETECTED Nasal B. parapertussis DNA (PCR) NOT DETECTED Nasal Coronavir 229E PCR NOT DETECTED Nasal Coronavir HKU1 PCR NOT DETECTED Nasal Coronavir NL63 PCR NOT DETECTED Nasal Coronavir OC43 PCR NOT DETECTED Nasal Enterovir/Rhinovir PCR DETECTED A Nasal Influenza B PCR NOT DETECTED Nasal Influenza A PCR NOT DETECTED Nasal Parainfluen 1 PCR NOT DETECTED Nasal Parainfluen 2 PCR NOT DETECTED Nasal Parainfluen 3 PCR NOT DETECTED Nasal Parainfluen 4 PCR NOT DETECTED Nasal RSV (PCR) NOT DETECTED Nasal B.pertussis DNA PCR NOT DETECTED Nasal C.pneumoniae (PCR) NOT DETECTED Aleksandr Human Metapneumo PCR NOT DETECTED Nasal M.pneumoniae (PCR) NOT DETECTED Nasal SARS-CoV-2 (PCR) NOT DETECTED PD Medical Decision Making - ED course Complexity details: reviewed results, re-evaluated patient, considered differential, d/w patient ED course: Presents with URI symptoms but unremarkable exam. Respiratory PCR panel is positive for enterovirus/rhinovirus. Results d/w patient, advised to take appropriate infectious precautions (and work note provided), return precautions discussed. Departure - Departure Disposition: 01 Home, Self Care Clinical Impression: Viral URI Condition: Good Instructions: ED URI Viral Comments: Tonight you have tested positive for enterovirus/rhinovirus. These viruses cause upper respiratory infection symptoms, such as cough, congestion, sore throat. They are generally considered "common cold" viruses. There is no specific treatment. These viruses rarely cause any significant medical issues and typically resolve within 5 to 7 days, although a dry cough sometimes continues for up to two weeks. Forms: Activity restrictions Discharge Date/Time: 08/01/23 22:46
[2023-08-01 22:48] VITALS: BP 130/88; O2SAT 98
== END 2023-08-01 22:46 | disposition home or self-care (01) ==
LOC: ED 19:31
DX: B34.8 Other viral infections of unspecified site (principal); Z20.822 Contact with and (suspected) exposure to COVID-19
CPT/HCPCS: 87633; 99283

== ENCOUNTER 2023-08-15 18:35 | Emergency (ER) | payer OTHER ==
[2023-08-15 18:47] VITALS: BP 160/84; O2SAT 93
--- NOTE | 2023-08-15 19:23 | ED Physician Documentation ---
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 She had a fall on the . Was seen at [facility] and had negative x-ray imaging. Patient was placed in a knee immobilizer and given crutches. She is unable to see occupational therapy until 01 September. In the interim she has been having worsening pain despite Motrin and Tylenol. No further falls. No fevers. She states that they cannot give her modified work duty at [employer] such as desk duty. She is requesting a note restricting her from work. 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:  HEENT: Myringotomy (tubes), Other - Present Medications Home Medications: Ambulatory Orders Medication Instructions Recorded Confirmed Buspirone HCl 15 mg PO BID 12/28/21 07/23/23 Lurasidone HCl [Latuda] 40 mg PO DAILY 12/28/21 07/23/23 Acetaminophen [Acetaminophen Extra 1,000 mg PO Q8H PRN #60 tablet 01/06/22 07/23/23 Strength] Ibuprofen [Motrin] 600 mg PO Q6H PRN #60 tab 01/06/22 07/23/23 Prazosin [Minipress] 1 mg PO DAILY 07/12/23 07/23/23 - Allergies Allergies/Adverse Reactions: Allergies Allergy/AdvReac Type Severity Reaction Status Date / Time prednisone Allergy Emesis Verified 08/15/23 18:42 - Social History Does the pt smoke?: No Smoking Status: Never smoker Does the pt drink ETOH?: No Does the pt have substance abuse?: No - POLST Patient has POLST: No PD ED PE NORMAL - General General: Alert and oriented X 3, No acute distress. No: Well developed/nourished (obese) - Cardiac Cardiac: RRR, No murmur - Respiratory Respiratory: Clear bilaterally - Derm Derm: Normal color, Warm and dry - Extremities Extremities: Other (Left knee with normal flexion extension. Mild tenderness medially with some laxity. No obvious deformity or abrasion or rash.) Results - Vitals Vitals: Vital Signs - 24 hr 08/15/23 18:42 Temperature 36.5 C Heart Rate 88 Respiratory 18 Rate Blood Pressure 160/84 H O2 Saturation 93 Oxygen O2 Source Room air PD Medical Decision Making - ED course Complexity details: d/w patient ED course: 23-year-old female here requesting a work note excusing her from work at [employer]. 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 She had negative x-ray imaging 2 days ago. At this time it would be important for her to continue to follow-up with occupational health which is already scheduled. Clinically there are no signs to suggest infection. She had mild laxity medially I suspect she has a cruciate ligament injury. May need an MRI upcoming. she will continue the Tylenol Motrin [id number]. Recommend continued use of the knee brace and crutches. The usual emergent return precautions were discussed for worsening symptoms. Departure - Departure Disposition: 01 Home, Self Care Clinical Impression: Acute pain of left knee Condition: Stable Comments: It is important you continue to follow-up with occupational health as already scheduled. They may be able to accommodate seeing you sooner. Continue to wear your knee immobilizer and use the crutches. Tylenol Motrin are what I would recommend for analgesia. If your symptoms or not markedly improving over the next week or 2 occupational health may recommend an MRI of the knee.
== END 2023-08-15 19:57 | disposition home or self-care (01) ==
LOC: ED 18:35
DX: M25.562 Pain in left knee (principal)
CPT/HCPCS: 99282

== ENCOUNTER 2024-02-27 09:06 | Outpatient (CLI) | payer OTHER | END 2024-02-27 09:07 | disposition home or self-care (01) | LOC: RT 09:06 | PROVIDERS: ATTEND Registered Nurse | DX: R06.09 Other forms of dyspnea (principal) | CPT/HCPCS: 94060 ==

== ENCOUNTER 2024-04-29 08:50 | Outpatient (CLI) | payer OTHER ==
[2024-04-29 09:08] LABS: BASOPHILS % (AUTO) 0.5 %; EOSINOPHILS # (AUTO) 0.4 10^3/uL (0.0-0.7); EOSINOPHILS % (AUTO) 4.9 %; HCT - HEMATOCRIT 39.4 % (37.0-47.0); HGB - HEMOGLOBIN 13.6 g/dL (12.0-16.0); LYMPHOCYTES # (AUTO) 1.7 10^3/uL (1.5-3.5); LYMPHOCYTES % (AUTO) 20.4 %; MEAN CORPUSCULAR HEMOGLOBIN 29.4 pg (27.0-31.0); MEAN CORPUSCULAR HGB CONC 34.5 g/dL (32.0-36.0); MEAN CORPUSCULAR VOLUME 85.3 fL (81.0-99.0); MONOCYTES # (AUTO) 0.6 10^3/uL (0.0-1.0); MONOCYTES % (AUTO) 7.3 %; NEUTROPHILS # (AUTO) 5.7 10^3/uL (1.5-6.6); NEUTROPHILS % (AUTO) 66.4 %; PLT - PLATELET COUNT 276 10^3/uL (130-450); RED BLOOD COUNT 4.62 10^6/uL (4.20-5.40); RED CELL DISTRIBUTION WIDTH 14.8 % (12.0-15.0); WHITE BLOOD COUNT 8.6 x10^3/uL (4.8-10.8)
[2024-04-29 09:23] LABS: ALBUMIN/GLOBULIN RATIO 1.6 (1.0-2.2); ALKALINE PHOSPHATASE 46 IU/L (42-121); ALT ALANINE AMINOTRANSFERASE 16 IU/L (10-60); AST ASPARTATE AMINOTRANSFERASE 16 IU/L (10-42); BILIRUBIN,TOTAL 1.1 mg/dL (0.2-1.0); BUN - BLOOD UREA NITROGEN 13 mg/dL (6-20); CALCIUM 9.3 mg/dL (8.5-10.3); CARBON DIOXIDE - CO2 24 mmol/L (21-32); CHLORIDE 108 mmol/L (101-111); CHOL/HDL RATIO 3.9 (<4.4); CHOLESTEROL 133 mg/dL; CREATININE 0.9 mg/dL (0.6-1.3); GFR - MDRD 78 (>89); GLUCOSE 93 mg/dL (74-104); HDL CHOLESTEROL 34 mg/dL; LDL CHOLESTEROL,CALCULATED 76 mg/dL; LDL/HDL RATIO 2.2 (<4.4); POTASSIUM 3.9 mmol/L (3.5-4.5); SODIUM 138 mmol/L (135-145); TOTAL PROTEIN 6.5 g/dL (6.4-8.9); TRIGLYCERIDES 114 mg/dL; VLDL CHOLESTEROL 23 mg/dL
[2024-04-29 09:37] LABS: THYROID STIMULATING HORMONE 1.24 uIU/mL (0.34-5.60)
[2024-04-29 11:13] LABS: ESTIMATED AVERAGE GLUCOSE 105 mg/dL (70-100); HEMOGLOBIN A1c% 5.3 % (4.27-6.07)
== END 2024-04-29 08:51 | disposition home or self-care (01) ==
LOC: LAB 08:50
PROVIDERS: ATTEND Registered Nurse
DX: E88.819 Insulin resistance, unspecified (principal); Z13.228 Encounter for screening for other metabolic disorders; Z13.220 Encounter for screening for lipoid disorders; Z13.29 Encounter for screening for other suspected endocrine disorder; Z13.0 Encounter for screening for diseases of the blood and blood-forming organs and certain disorders involving the immune mechanism
CPT/HCPCS: 36415; 80053; 80061; 83036; 83721; 84443; 85025

== ENCOUNTER 2024-09-05 22:58 | Inpatient (IN) ==
[2024-09-05] MEDS: IPRATROPIUM/ALBUTEROL 3 ML NEB INH STA (23:27)
[2024-09-05 23:31] LABS: BASOPHILS % (AUTO) 0.3 %; EOSINOPHILS % (AUTO) 0.2 %; HCT - HEMATOCRIT 43.3 % (37.0-47.0); HGB - HEMOGLOBIN 14.7 g/dL (12.0-16.0); LYMPHOCYTES # (AUTO) 1.7 10^3/uL (1.5-3.5); LYMPHOCYTES % (AUTO) 13.7 %; MEAN CORPUSCULAR HEMOGLOBIN 28.7 pg (27.0-31.0); MEAN CORPUSCULAR HGB CONC 33.9 g/dL (32.0-36.0); MEAN CORPUSCULAR VOLUME 84.4 fL (81.0-99.0); MEAN PLATELET VOLUME 9.5 fL (7.9-10.8); MONOCYTES % (AUTO) 7.5 %; NEUTROPHILS # (AUTO) 9.8 10^3/uL (1.5-6.6); NEUTROPHILS % (AUTO) 77.6 %; PLT - PLATELET COUNT 313 10^3/uL (130-450); RED BLOOD COUNT 5.13 10^6/uL (4.20-5.40); RED CELL DISTRIBUTION WIDTH 13.2 % (12.0-15.0); WHITE BLOOD COUNT 12.6 x10^3/uL (4.8-10.8)
[2024-09-05] MEDS: DEXAMETHASONE 10 MG/ML VIAL IVP STA (23:40)
[2024-09-05 23:43] LABS: VBG BASE EXCESS -1.3 mmol/L (-2 - +2); VBG PCO2 37.5 mmHg (41-51); VBG PH 7.405 (7.31-7.41); VBG PO2 42.7 mmHg (25-47); VBG TOTAL CO2 24.1 mmol/L (24-29)
[2024-09-05 23:45] LABS: ALBUMIN 4.1 g/dL (3.2-5.5); ALBUMIN/GLOBULIN RATIO 1.4 (1.0-2.2); BILIRUBIN,TOTAL 0.5 mg/dL (0.2-1.0); CALCIUM 8.9 mg/dL (8.5-10.3); CREATININE 0.8 mg/dL (0.6-1.3); POTASSIUM 3.4 mmol/L (3.5-4.5); TOTAL PROTEIN 7.1 g/dL (6.4-8.9)
--- NOTE | 2024-09-06 00:16 | XRAY Report ---
PROCEDURE: XR Chest 2V INDICATIONS: soa TECHNIQUE: 2 views of the chest were acquired. COMPARISON: 05/28/2023. FINDINGS: Surgical changes and devices: None. Lungs and pleura: Hazy bibasilar opacities. Mediastinum: Mediastinal contours appear normal. Heart size is normal. Bones and chest wall: No suspicious bony lesions. Overlying soft tissues appear unremarkable. IMPRESSION: Hazy bibasilar opacities, likely atelectasis, less likely infection. Reviewed by: Winston Kidd MD on 09/06/2024 12:14 AM PST Approved by: Winston Kidd MD on 09/06/2024 12:14 AM PST Station ID: [id number]
[2024-09-06] MEDS: IPRATROPIUM/ALBUTEROL 3 ML NEB INH STA (00:35)
[2024-09-06] MEDS: ALBUTEROL NEB 2.5 MG/3 ML INH STA ×2 (01:24→01:54)
[2024-09-06] MEDS: LORazepam 1 MG TABLET PO STA (01:45)
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
[2024-09-06] MEDS: SODIUM CHLORIDE 0.9% 1,000 ML IV ONE (03:15)
[2024-09-06 04:09] LABS: B. PARAPERTUSSIS- RESP PCR PAN NOT DETECTED; B. PERTUSSIS- RESP PCR PANEL NOT DETECTED; C. PNEUMONIAE- RESP PCR PANEL NOT DETECTED; CORONAVIRUS 229E-RESP PCR NOT DETECTED; CORONAVIRUS HKU1-RESP PCR NOT DETECTED; CORONAVIRUS NL63-RESP PCR NOT DETECTED; CORONAVIRUS OC43-RESP PCR NOT DETECTED; HUMAN METAPNEUMOVIRUS NOT DETECTED; INFLUENZA A H1 2009- RESP PCR DETECTED; INFLUENZA B - RESP PCR PANEL NOT DETECTED; M. PNEUMONIAE- RESP PCR PANEL NOT DETECTED; PARAINFLUENZA VIRUS 1 NOT DETECTED; PARAINFLUENZA VIRUS 2 NOT DETECTED; PARAINFLUENZA VIRUS 3 NOT DETECTED; PARAINFLUENZA VIRUS 4 NOT DETECTED; RHINOVIRUS/ENTEROVIRUS NOT DETECTED; RSV- RESP PCR PANEL NOT DETECTED; SARS-CoV-2 -RESP PCR PANEL NOT DETECTED
[2024-09-06] MEDS ORDERED: ALBUTEROL NEB 2.5 MG/3 ML INH PRN (04:33)
[2024-09-06] MEDS ORDERED: ALBUTEROL 1 PUFF INH PRN (04:33)
[2024-09-06] MEDS ORDERED: ONDANSETRON 4 MG/2 ML VIAL IVP PRN (04:33)
[2024-09-06] MEDS ORDERED: MORPHINE 10 MG/ML VIAL IVP PRN (04:33)
[2024-09-06 04:35] LABS: ABG BASE EXCESS -3.4 mmol/L (-2.0-3.0); ABG HCO3 21.7 mmol/L (22.0-26.0); ABG OXYGEN SATURATION 95 % (94-98); ABG PCO2 39 mmHg (34-45); ABG PH 7.36 (7.35-7.45); ABG PO2 79 mmHg (80-100); ABG TCO2 22.9 MMOL/L (21.0-29.0); ALLEN TEST POSITIVE
[2024-09-06 04:36] LABS: ABG MODE OF VENTILATION BIPAP; ABG RESPIRATORY RATE 12 b/min
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
[2024-09-06] MEDS ORDERED: METHYLPREDNISOLONE 4 MG PO SCH (04:45)
[2024-09-06 05:49] LABS: ALBUMIN 3.9 g/dL (3.2-5.5); ALBUMIN/GLOBULIN RATIO 1.4 (1.0-2.2); ALKALINE PHOSPHATASE 42 IU/L (42-121); ALT ALANINE AMINOTRANSFERASE 17 IU/L (10-60); AST ASPARTATE AMINOTRANSFERASE 16 IU/L (10-42); BILIRUBIN,TOTAL 0.4 mg/dL (0.2-1.0); BUN - BLOOD UREA NITROGEN 15 mg/dL (6-20); CALCIUM 8.3 mg/dL (8.5-10.3); CARBON DIOXIDE - CO2 23 mmol/L (21-32); CHLORIDE 105 mmol/L (101-111); CHOL/HDL RATIO 3.7 (<4.4); CHOLESTEROL 115 mg/dL; CREATININE 0.7 mg/dL (0.6-1.3); GFR - MDRD 103 (>89); GLUCOSE 164 mg/dL (74-104); HDL CHOLESTEROL 31 mg/dL; LDL CHOLESTEROL,CALCULATED 69 mg/dL; LDL/HDL RATIO 2.2 (<4.4); MAGNESIUM 1.8 mg/dL (1.7-2.3); POTASSIUM 3.6 mmol/L (3.5-4.5); SODIUM 135 mmol/L (135-145); TOTAL PROTEIN 6.6 g/dL (6.4-8.9); TRIGLYCERIDES 77 mg/dL; VLDL CHOLESTEROL 15 mg/dL
[2024-09-06 06:12] LABS: BASOPHILS % (AUTO) 0.2 %; HCT - HEMATOCRIT 40.2 % (37.0-47.0); HGB - HEMOGLOBIN 13.6 g/dL (12.0-16.0); LYMPHOCYTES # (AUTO) 0.6 10^3/uL (1.5-3.5); LYMPHOCYTES % (AUTO) 5.7 %; MEAN CORPUSCULAR HEMOGLOBIN 28.6 pg (27.0-31.0); MEAN CORPUSCULAR HGB CONC 33.8 g/dL (32.0-36.0); MEAN CORPUSCULAR VOLUME 84.6 fL (81.0-99.0); MEAN PLATELET VOLUME 9.4 fL (7.9-10.8); MONOCYTES # (AUTO) 0.3 10^3/uL (0.0-1.0); MONOCYTES % (AUTO) 2.3 %; NEUTROPHILS # (AUTO) 10.2 10^3/uL (1.5-6.6); PLT - PLATELET COUNT 298 10^3/uL (130-450); RED BLOOD COUNT 4.75 10^6/uL (4.20-5.40); RED CELL DISTRIBUTION WIDTH 13.4 % (12.0-15.0); WHITE BLOOD COUNT 11.2 x10^3/uL (4.8-10.8)
[2024-09-06] MEDS: SODIUM CHLORIDE 0.9% 500 ML IV ONE (07:05)
[2024-09-06] MEDS: LACTATED RINGERS 1,000 ML IV SCH (07:06)
[2024-09-06] MEDS: IPRATROPIUM/ALBUTEROL 3 ML NEB INH SCH (07:15)
[2024-09-06 07:32] LABS: THYROID STIMULATING HORMONE 0.63 uIU/mL (0.34-5.60)
[2024-09-06] MEDS ORDERED: iohexoL-300 100 ML VIAL ONE (08:30)
[2024-09-06 08:41] LABS: ESTIMATED AVERAGE GLUCOSE 108 mg/dL (70-100); HEMOGLOBIN A1c% 5.4 % (4.27-6.07)
[2024-09-06 08:55] LABS: BILIRUBIN,URINE NEGATIVE (NEGATIVE); GLUCOSE, URINE (UA) NEGATIVE (NEGATIVE); KETONES,URINE (UA) 15 mg/dL (NEGATIVE); LEUKOCYTE ESTERASE, URINE NEGATIVE (NEGATIVE); NITRITE,URINE NEGATIVE (NEGATIVE); OCCULT BLOOD,URINE NEGATIVE (NEGATIVE); PROTEIN,URINE NEGATIVE (NEGATIVE); UROBILINOGEN,URINE 0.2 (NORMAL) E.U./dL (NORMAL)
[2024-09-06 09:02] LABS: CLARITY,URINE CLEAR (CLEAR)
[2024-09-06 09:08] LABS: WBC,URINE 0-3 /HPF (0-5)
[2024-09-06 09:09] LABS: BACTERIA,URINE Rare /HPF (None Seen); MUCUS,URINE Few Strands; RBC,URINE 0-5 /HPF (0-5); SQUAMOUS EPITHELIAL CELL,UR FEW Squamous (<= Few)
[2024-09-06 09:27] LABS: HCG UR QUAL NEGATIVE
[2024-09-06] MEDS: PANTOPRAZOLE 40 MG TABLET PO SCH (09:41)
[2024-09-06] MEDS: lamoTRIgine 25 MG TABLET PO SCH (09:41)
[2024-09-06] MEDS: MULTIVITAMIN W/MINERALS TABLET PO SCH (09:43)
[2024-09-06] MEDS: ASCORBIC ACID 500 MG TABLET PO SCH (09:43)
[2024-09-06] MEDS: OSELTAMIVIR 75 MG CAPSULE PO SCH (09:43)
[2024-09-06] MEDS: LACTOBACILLUS RHAMNOSUS GG CAPSULE PO SCH (09:45)
[2024-09-06] MEDS: ENOXAPARIN 40 MG/0.4 ML SYRINGE SUBQ SCH (09:45)
[2024-09-06] MEDS: guaiFENesin 600 MG TABLET PO SCH (09:45)
[2024-09-06] MEDS: methylPREDNISolone SUCCINATE 40 MG/ML VIAL IVP SCH (09:46)
--- NOTE | 2024-09-06 10:40 | CT Report ---
PROCEDURE: CT Angio Chest INDICATIONS: ?PE CONTRAST: omni 300, 80 TECHNIQUE: After the administration of intravenous contrast, 2 mm axial images were acquired from the pulmonary apices to the posterior costophrenic angles during the arterial phase. In addition, 1 mm lung kernel and 5 mm soft tissue kernel reconstructions were performed. 3-dimensional coronal oblique maximum int ensity projection (MIP) reformats, 8 mm axial MIP, and 5 mm coronal and sagittal MPR reformats were t hen performed through the thorax. For radiation dose reduction, the following was used: automated exp osure control, adjustment of mA and/or kV according to patient size. COMPARISON: Chest 2 views dated 09/05/2024. FINDINGS: Image quality: Excellent. Large vessels: Suboptimal opacification of the pulmonary tree. No large or moderate pulmonary emboli. Thoracic aorta is normal in caliber without dissection. Lungs and pleura: Patchy bilateral groundglass opacities, potentially representing viral pneumonitis or early bacterial pneumonia or inflammation. No pleural effusions. Patchy bilateral atelectasis. No pneumothorax. No suspicious pulmonary nodules which require follow up. Mediastinum: Heart size is normal. No pericardial effusion. No large vessel abnormality. Shotty media stinal lymph nodes. Chest wall and lower neck: Thyroid is unremarkable. No axillary or supraclavicular adenopathy by size . Bones: No aggressive osseous abnormality. Upper Abdomen: Unremarkable. IMPRESSION: 1. Suboptimal study. Large and moderate sized pulmonary emboli excluded. 2. Patchy bilateral groundglass opacities potentially represent viral pneumonitis versus early bacter ial pneumonia or inflammation. 3. Patchy bilateral atelectasis. Reviewed by: Dominguez Sanchez MD on 09/06/2024 10:38 AM [facility] Approved by: Dominguez Sanchez MD on 09/06/2024 10:38 AM PST Station ID: [id number]
[2024-09-06] MEDS: PRAZOSIN 1 MG CAPSULE PO SCH ×2 (12:14→20:29)
--- NOTE | 2024-09-06 13:29 | PHARMACY PROGRESS NOTE ---
Best Possible Medication History Admit Date and Time: 09/06/24 0433 Home Medications Medication Instructions Recorded Confirmed Type acetaminophen 500 mg tablet 1,000 mg (2 x 500 mg) PO Q8H PRN 01/06/22 09/05/24 Rx (Acetaminophen Extra Strength) Pain #60 tabs albuterol sulfate 90 mcg/actuation 2 inh inhalation Q4H PRN wheezing 08/22/24 09/05/24 History aerosol inhaler (Ventolin HFA) lurasidone 120 mg tablet (Latuda) 120 mg PO QDAY 08/22/24 09/05/24 History prazosin 2 mg capsule 2 mg PO QPM 08/22/24 09/06/24 History benzonatate 100 mg capsule 100 mg PO TID PRN cough #30 caps 09/02/24 09/05/24 Rx methylprednisolone 4 mg tablets in See Rx Instructions PO PER PKG DIR 09/02/24 09/05/24 Rx a dose pack (Medrol (Portillo)) #21 ea lamotrigine 100 mg tablet 100 mg PO DAILY 09/06/24 09/06/24 History Processed by: Nursing [facility] Statement: As the person ultimately responsible for medication therapy, providers are able to order a medication from an existing home medication list in [facility] via the "Reconcile Routine" prior to Confirmation of that medication by personal support worker. Such practice is discouraged except when the physician, in their clinical judgment, deems that a medical need exists for a medication without regard to p revious use.
[2024-09-06] MEDS: lamoTRIgine 25 MG TABLET PO ONE (18:05)
[2024-09-06] MEDS: MELATONIN 3 MG TABLET PO PRN (20:29)
[2024-09-06] MEDS: BENZONATATE 100 MG CAPSULE PO PRN (20:29)
[2024-09-07 05:02] LABS: HCT - HEMATOCRIT 40.9 % (37.0-47.0); HGB - HEMOGLOBIN 13.5 g/dL (12.0-16.0); MEAN CORPUSCULAR HEMOGLOBIN 28.5 pg (27.0-31.0); MEAN CORPUSCULAR VOLUME 86.5 fL (81.0-99.0); MEAN PLATELET VOLUME 9.7 fL (7.9-10.8); RED BLOOD COUNT 4.73 10^6/uL (4.20-5.40); RED CELL DISTRIBUTION WIDTH 13.5 % (12.0-15.0); WHITE BLOOD COUNT 12.3 x10^3/uL (4.8-10.8)
[2024-09-07 05:18] LABS: CALCIUM 8.8 mg/dL (8.5-10.3); CREATININE 0.6 mg/dL (0.6-1.3); POTASSIUM 3.9 mmol/L (3.5-4.5)
[2024-09-07] MEDS: predniSONE 20 MG TABLET PO SCH (09:18)
[2024-09-07] MEDS: lamoTRIgine 100 MG TABLET PO SCH (09:19)
--- NOTE | 2024-09-07 09:21 | PROVIDER PROGRESS NOTE ---
Subjective Subjective Subjective: Today, patient states that she feels better. Yesterday, she was able to get up, go to the shower. There is some shortness of breath with exertion still. She denies any fevers, chills. She still coughing, but it is a dry cough. Current Medications Current Medications Current Medications: Current Medications Generic Name Dose Route Start Last Admin Trade Name Freq PRN Reason Stop Dose Admin Acetaminophen 650 mg 09/06/24 04:33 Acetaminophen 325 Mg Tablet PO Q6H PRN pain, fever Albuterol 2.5 mg 09/06/24 04:33 Albuterol Neb 2.5 Mg/3 Ml INH Q4H PRN Wheezing Albuterol 2 puffs 09/06/24 04:33 Albuterol 1 Puff INH Q2H PRN sob Albuterol/Ipratropium 3 ml 09/06/24 05:00 09/07/24 07:15 Ipratropium/Albuterol 3 Ml Neb INH 3 ml Q6H KATYA Administration Ascorbic Acid 500 mg 09/06/24 09:00 09/07/24 09:19 Ascorbic Acid 500 Mg Tablet PO 500 mg DAILY KATYA Administration Benzonatate 100 mg 09/06/24 04:29 09/06/24 20:29 Benzonatate 100 Mg Capsule PO 100 mg TID PRN Administration cough Enoxaparin Sodium 40 mg 09/06/24 09:00 09/07/24 09:19 Enoxaparin 40 Mg/0.4 Ml Syringe SUBQ 40 mg DAILY KATYA Administration Guaifenesin 600 mg 09/06/24 09:00 09/07/24 09:19 Guaifenesin 600 Mg Tablet PO 600 mg BID KATYA Administration Lactobacillus Rhamnosus 1 cap 09/06/24 09:00 09/07/24 09:19 Lactobacillus Rhamnosus Gg Capsule PO 1 cap DAILY KATYA Administration Lamotrigine 100 mg 09/07/24 09:00 09/07/24 09:19 Lamotrigine 100 Mg Tablet PO 100 mg DAILY KATYA Administration Melatonin 3 mg 09/06/24 04:33 09/06/24 20:29 Melatonin 3 Mg Tablet PO 3 mg QPM PRN Administration sleep Morphine Sulfate 2 mg 09/06/24 09:32 Morphine 2 Mg/Ml Carpuject IVP Q4H PRN Pain Multivitamins/Minerals 1 tab 09/06/24 08:00 09/07/24 09:18 Multivitamin W/Minerals Tablet PO 1 tab DAILYWM KATYA Administration Ondansetron HCl 4 mg 09/06/24 04:33 Ondansetron 4 Mg/2 Ml Vial IVP Q8H PRN Nausea / Vomiting Oseltamivir Phosphate 75 mg 09/06/24 09:00 09/07/24 09:20 Oseltamivir 75 Mg Capsule PO 09/10/24 21:01 75 mg BID KATYA Administration Pantoprazole Sodium 40 mg 09/06/24 07:00 09/07/24 06:37 Pantoprazole 40 Mg Tablet PO 40 mg QDAC KATYA Administration Lurasidone [Latuda] 1 each 09/06/24 09:00 09/07/24 09:20 120 Mg Tablet PO 1 each DAILY KATYA Administration Prazosin HCl 2 mg 09/06/24 21:00 09/06/24 20:29 Prazosin 1 Mg Capsule PO 2 mg QPM KATYA Administration Prednisone 40 mg 09/07/24 08:00 09/07/24 09:18 Prednisone 20 Mg Tablet PO 40 mg DAILYWM KATYA Administration Objective Vital Signs/Intake & Output Reviewed Vital Signs: Yes Vital Signs: Vital Signs x48h Temp Pulse Pulse Resp BP Pulse Ox O2 Flow Rate 09/07/24 09:00 88 26 H 160/78 H 91 L 15 09/07/24 08:00 97.9 F 90 26 H 153/82 H 92 15 09/07/24 07:16 72 28 H 09/07/24 07:00 65 28 H 138/96 H 94 09/07/24 06:13 66 09/07/24 06:00 76 28 H 115/65 92 09/07/24 05:00 84 29 H 140/84 H 93 09/07/24 04:15 64 09/07/24 04:00 69 27 H 150/89 H 94 09/07/24 03:00 15 09/07/24 03:00 88 29 H 141/87 H 94 09/07/24 02:00 73 25 H 148/89 H 93 Intake & Output: Intake & Output 09/04/24 09/05/24 09/06/24 09/07/24 23:59 23:59 23:59 23:59 Intake Total 2798 / 2798 740 / 740 Output Total 1999 / 1999 500 / 500 Balance 798 / 798 240 / 240 Weight (kg) 158.757 kg 156 kg Objective General Appearance: positive No acute distress, Alert and Other (BIPAP in place; no respiratory distress noted) Eyes Bilateral: positive Normal inspection, PERRL and Conjunctivae nml ENT: positive ENT inspection nml, Pharynx nml and No signs of dehydration Neck: positive Nml inspection, Thyroid nml and No JVD Respiratory: positive Chest non-tender and No respiratory distress; negative Breath sounds nml (diminished at bases ), Wheezes, Rales or Rhonchi Cardiovascular: positive Regular rate & rhythm, No murmur and No gallop; negative Tachycardia or Bradycardia Abdomen: positive Non-tender, No organomegaly and Nml bowel sounds; negative Guarding, Hepatomegaly, Splenomegaly or Mass Back: positive Nml inspection; negative CVA tenderness (R) or CVA tenderness (L) Skin: positive Color nml, No rash, Warm and Dry Extremities: positive Non-tender, Full ROM and Nml appearance Neurologic/Psychiatric: positive Oriented x3, Motor nml and Mood/affect nml Lab Results 09/07/24 04:29 09/07/24 04:29 Other Labs: Lab Results x24hrs 09/07/24 09/06/24 09/06/24 Range/Units 04:29 08:40 07:00 WBC 12.3 H (4.8-10.8) x10^3/uL RBC 4.73 (4.20-5.40) 10^6/uL Hgb 13.5 (12.0-16.0) g/dL Hct 40.9 (37.0-47.0) % MCV 86.5 (81.0-99.0) fL MCH 28.5 (27.0-31.0) pg MCHC 33.0 (32.0-36.0) g/dL RDW 13.5 (12.0-15.0) % Plt Count 321 (130-450) 10^3/uL MPV 9.7 (7.9-10.8) fL Sodium 138 (135-145) mmol/L Potassium 3.9 (3.5-4.5) mmol/L Chloride 106 (101-111) mmol/L Carbon Dioxide 25 (21-32) mmol/L Anion Gap 7.0 (6-13) BUN 11 (6-20) mg/dL Creatinine 0.6 (0.6-1.3) mg/dL Estimated GFR (MDRD) 123 (>89) Glucose 118 H (74-104) mg/dL Calcium 8.8 (8.5-10.3) mg/dL Procalcitonin Immunoas (<0.5) ng/mL Urine HCG, Qual NEGATIVE Nasal Screen MRSA (PCR) NEGATIVE (NEGATIVE) 09/06/24 Range/Units 05:54 WBC (4.8-10.8) x10^3/uL RBC (4.20-5.40) 10^6/uL Hgb (12.0-16.0) g/dL Hct (37.0-47.0) % MCV (81.0-99.0) fL MCH (27.0-31.0) pg MCHC (32.0-36.0) g/dL RDW (12.0-15.0) % Plt Count (130-450) 10^3/uL MPV (7.9-10.8) fL Sodium (135-145) mmol/L Potassium (3.5-4.5) mmol/L Chloride (101-111) mmol/L Carbon Dioxide (21-32) mmol/L Anion Gap (6-13) BUN (6-20) mg/dL Creatinine (0.6-1.3) mg/dL Estimated GFR (MDRD) (>89) Glucose (74-104) mg/dL Calcium (8.5-10.3) mg/dL Procalcitonin Immunoas < 0.05 (<0.5) ng/mL Urine HCG, Qual Nasal Screen MRSA (PCR) (NEGATIVE) Diagnostic Imaging Diagnostic Imaging Results: positive Final report reviewed Assessment/Plan Problem List (1) Acute hypoxic respiratory failure: Impression: Patient presented with dyspnea over the past couple days. Required BiPAP initially admission, currently on 15 L oxygen saturating in the low 90s. CTA shows no pulmonary embolism, but does show patchy bilateral groundglass opacities. Procalcitonin negative, low suspicion for bacterial pneumonia. Influenza positive. Received 4 doses of IV steroids. Transition to oral prednisone today. Continue Tamiflu. Continue to wean oxygen as tolerated. (2) Leukocytosis: Impression: Likely reactive to above infectious process vs. steroid use. Stable, continue to monitor. Qualifiers: Leukocytosis type: unspecified Qualified Code(s): D72.829 - Elevated white blood cell count, unspecified (3) Influenza A: Impression: Continue Tamiflu. Management as above. (4) Asthma: Impression: Recently had spirometry done in 02/2024; FEV1/FVC ratio was reduced, and following ministration bronchodilators there was good response. Diagnosis was minimal obstructive airway disease. Qualifiers: Asthma persistence: unspecified Asthma severity: mild Asthma complication type: with acute exacerbation Qualified Code(s): J45.901 - Unspecified asthma with (acute) exacerbation (5) Obstructive sleep apnea: Impression: Continue CPAP use at night when appropriate. (6) Post traumatic stress disorder (PTSD): Impression: Continue Lamictal 100 mg daily, prazosin 2 mg nightly, Latuda 120 mg daily.
[2024-09-07] MEDS: MORPHINE 2 MG/ML CARPUJECT IVP PRN (22:08)
[2024-09-08 05:16] LABS: HGB - HEMOGLOBIN 13.2 g/dL (12.0-16.0); MEAN CORPUSCULAR HEMOGLOBIN 27.8 pg (27.0-31.0); MEAN CORPUSCULAR HGB CONC 32.2 g/dL (32.0-36.0); MEAN CORPUSCULAR VOLUME 86.5 fL (81.0-99.0); MEAN PLATELET VOLUME 9.4 fL (7.9-10.8); RED BLOOD COUNT 4.74 10^6/uL (4.20-5.40); RED CELL DISTRIBUTION WIDTH 13.4 % (12.0-15.0); WHITE BLOOD COUNT 18.8 x10^3/uL (4.8-10.8)
[2024-09-08 05:33] LABS: CALCIUM 8.3 mg/dL (8.5-10.3); CREATININE 0.9 mg/dL (0.6-1.3); MAGNESIUM 1.9 mg/dL (1.7-2.3); POTASSIUM 3.5 mmol/L (3.5-4.5)
--- NOTE | 2024-09-08 08:41 | PROVIDER PROGRESS NOTE ---
Subjective Subjective Subjective: Overall, patient states that she feels better. She does have an occasional cough but there is minimal sputum production. She has had no fevers or chills. She feels like her shortness of breath is improving. She does endorse some fullness and pain in her ears, left worse than right. She is a history of frequent ear infections, as well as a perforated eardrum. Additionally, she has some dysuria, as well as urinary incontinence, and feelings of incomplete emptying. Current Medications Current Medications Current Medications: Current Medications Generic Name Dose Route Start Last Admin Trade Name Freq PRN Reason Stop Dose Admin Acetaminophen 650 mg 09/06/24 04:33 Acetaminophen 325 Mg Tablet PO Q6H PRN pain, fever Albuterol 2.5 mg 09/06/24 04:33 Albuterol Neb 2.5 Mg/3 Ml INH Q4H PRN Wheezing Albuterol 2 puffs 09/06/24 04:33 Albuterol 1 Puff INH Q2H PRN sob Albuterol/Ipratropium 3 ml 09/06/24 05:00 09/08/24 07:13 Ipratropium/Albuterol 3 Ml Neb INH 3 ml Q6H KATYA Administration Amoxicillin/Clavulanate Potassium 1 tab 09/08/24 09:00 Amox/Clav 875 Mg/125 Mg Tablet PO BID KATYA Ascorbic Acid 500 mg 09/06/24 09:00 09/07/24 09:19 Ascorbic Acid 500 Mg Tablet PO 500 mg DAILY KATYA Administration Benzonatate 100 mg 09/06/24 04:29 09/07/24 20:28 Benzonatate 100 Mg Capsule PO 100 mg TID PRN Administration cough Enoxaparin Sodium 40 mg 09/06/24 09:00 09/07/24 09:19 Enoxaparin 40 Mg/0.4 Ml Syringe SUBQ 40 mg DAILY KATYA Administration Guaifenesin 600 mg 09/06/24 09:00 09/07/24 20:28 Guaifenesin 600 Mg Tablet PO 600 mg BID KATYA Administration Lactobacillus Rhamnosus 1 cap 09/06/24 09:00 09/07/24 09:19 Lactobacillus Rhamnosus Gg Capsule PO 1 cap DAILY KATYA Administration Lamotrigine 100 mg 09/07/24 09:00 09/07/24 09:19 Lamotrigine 100 Mg Tablet PO 100 mg DAILY KATYA Administration Melatonin 3 mg 09/06/24 04:33 09/07/24 20:27 Melatonin 3 Mg Tablet PO 3 mg QPM PRN Administration sleep Morphine Sulfate 2 mg 09/06/24 09:32 09/07/24 22:08 Morphine 2 Mg/Ml Carpuject IVP 2 mg Q4H PRN Administration Pain Multivitamins/Minerals 1 tab 09/06/24 08:00 09/07/24 09:18 Multivitamin W/Minerals Tablet PO 1 tab DAILYWM KATYA Administration Ondansetron HCl 4 mg 09/06/24 04:33 Ondansetron 4 Mg/2 Ml Vial IVP Q8H PRN Nausea / Vomiting Oseltamivir Phosphate 75 mg 09/06/24 09:00 09/07/24 20:28 Oseltamivir 75 Mg Capsule PO 09/10/24 21:01 75 mg BID KATYA Administration Pantoprazole Sodium 40 mg 09/06/24 07:00 09/08/24 06:30 Pantoprazole 40 Mg Tablet PO 40 mg QDAC KATYA Administration Lurasidone [Latuda] 1 each 09/06/24 09:00 09/07/24 09:20 120 Mg Tablet PO 1 each DAILY KATYA Administration Prazosin HCl 2 mg 09/06/24 21:00 09/07/24 20:27 Prazosin 1 Mg Capsule PO 2 mg QPM KATYA Administration Prednisone 40 mg 09/07/24 08:00 09/07/24 09:18 Prednisone 20 Mg Tablet PO 40 mg DAILYWM KATYA Administration Objective Vital Signs/Intake & Output Reviewed Vital Signs: Yes Vital Signs: Vital Signs x48h Temp Pulse Pulse Resp BP BP Pulse Ox 09/08/24 08:00 100.0 F 100 24 148/102 H 90 L 09/08/24 07:14 88 16 09/08/24 07:14 09/08/24 07:00 76 25 H 157/89 H 97 09/08/24 06:30 09/08/24 06:00 91 24 156/94 H 90 L 09/08/24 05:00 70 28 H 143/93 H 97 09/08/24 04:00 80 09/08/24 04:00 76 28 H 139/96 H 98 09/08/24 03:00 73 26 H 150/84 H 93 09/08/24 02:00 73 32 H 116/70 97 09/08/24 01:20 72 09/08/24 01:00 74 22 142/89 H 94 O2 Flow Rate 09/08/24 08:00 12 09/08/24 07:14 15 09/08/24 07:14 15 09/08/24 07:00 15 09/08/24 06:30 15 09/08/24 06:00 15 09/08/24 05:00 09/08/24 04:00 15 09/08/24 04:00 09/08/24 03:00 09/08/24 02:00 09/08/24 01:20 15 09/08/24 01:00 Intake & Output: Intake & Output 09/05/24 09/06/24 09/07/24 09/08/24 23:59 23:59 23:59 23:59 Intake Total 2798 / 2798 1340 / 1340 500 / 500 Output Total 1999 2300 / 2300 425 / 425 Balance 798 / 798 -960 / -960 75 / 75 Weight (kg) 158.757 kg 156 kg Objective General Appearance: positive No acute distress, Alert and Other (BIPAP in place; no respiratory distress noted) Eyes Bilateral: positive Normal inspection, PERRL and Conjunctivae nml ENT: positive Pharynx nml and No signs of dehydration; negative ENT inspection nml (erythema noted in auditory canals - L>R, bulging of tympanic membranes; no perforation noted) Neck: positive Nml inspection, Thyroid nml and No JVD Respiratory: positive Chest non-tender and No respiratory distress; negative Breath sounds nml (diminished at bases ), Wheezes, Rales or Rhonchi Cardiovascular: positive Regular rate & rhythm, No murmur and No gallop; negative Tachycardia or Bradycardia Abdomen: positive Non-tender, No organomegaly and Nml bowel sounds; negative Guarding, Hepatomegaly, Splenomegaly or Mass Back: positive Nml inspection; negative CVA tenderness (R) or CVA tenderness (L) Skin: positive Color nml, No rash, Warm and Dry Extremities: positive Non-tender, Full ROM and Nml appearance Neurologic/Psychiatric: positive Oriented x3, Motor nml and Mood/affect nml Lab Results 09/08/24 05:00 09/08/24 05:00 Other Labs: Lab Results x24hrs 09/08/24 Range/Units 05:00 WBC 18.8 H (4.8-10.8) x10^3/uL RBC 4.74 (4.20-5.40) 10^6/uL Hgb 13.2 (12.0-16.0) g/dL Hct 41.0 (37.0-47.0) % MCV 86.5 (81.0-99.0) fL MCH 27.8 (27.0-31.0) pg MCHC 32.2 (32.0-36.0) g/dL RDW 13.4 (12.0-15.0) % Plt Count 289 (130-450) 10^3/uL MPV 9.4 (7.9-10.8) fL Sodium 136 (135-145) mmol/L Potassium 3.5 (3.5-4.5) mmol/L Chloride 104 (101-111) mmol/L Carbon Dioxide 26 (21-32) mmol/L Anion Gap 6.0 (6-13) BUN 19 (6-20) mg/dL Creatinine 0.9 (0.6-1.3) mg/dL Estimated GFR (MDRD) 77 L (>89) Glucose 94 (74-104) mg/dL Calcium 8.3 L (8.5-10.3) mg/dL Magnesium 1.9 (1.7-2.3) mg/dL Diagnostic Imaging Diagnostic Imaging Results: positive Final report reviewed Assessment/Plan Problem List (1) Acute hypoxic respiratory failure: Impression: Patient presented with dyspnea over the past couple days. Required BiPAP initially admission, currently on 12 L oxygen saturating in the low 90s. CTA shows no pulmonary embolism, but does show patchy bilateral groundglass opacities. Procalcitonin negative, low suspicion for bacterial pneumonia. Influenza positive. Received 4 doses of IV steroids. Transitioned to oral prednisone. Continue Tamiflu. Continue to wean oxygen as tolerated. (2) Acute otitis media: Impression: Patient with erythematous ear canals bilaterally, left versus right. Tympanic membrane bulging, no perforation noted. Will start a course of Augmentin for 5 days. Qualifiers: Otitis media type: unspecified Qualified Code(s): H66.90 - Otitis media, unspecified, unspecified ear (3) Leukocytosis: Impression: Likely reactive to above infectious process vs. steroid use. Increased, but patient is improving. Continue to trend, hold off on systemic antibiotics. Qualifiers: Leukocytosis type: unspecified Qualified Code(s): D72.829 - Elevated white blood cell count, unspecified (4) Influenza A: Impression: Continue Tamiflu. Management as above. (5) Asthma: Impression: Recently had spirometry done in 02/2024; FEV1/FVC ratio was reduced, and following ministration bronchodilators there was good response. Diagnosis was minimal obstructive airway disease. Qualifiers: Asthma complication type: with acute exacerbation Asthma persistence: u nspecified Asthma severity: mild Qualified Code(s): J45.901 - Unspecified asthma with (acute) exacerbation (6) Obstructive sleep apnea: Impression: Continue CPAP use at night when appropriate. (7) Post traumatic stress disorder (PTSD): Impression: Continue Lamictal 100 mg daily, prazosin 2 mg nightly, Latuda 120 mg daily.
[2024-09-08] MEDS: AMOX/CLAV 875 MG/125 MG TABLET PO SCH (09:37)
[2024-09-08 11:33] LABS: BILIRUBIN,URINE NEGATIVE (NEGATIVE); GLUCOSE, URINE (UA) NEGATIVE (NEGATIVE); KETONES,URINE (UA) NEGATIVE (NEGATIVE); LEUKOCYTE ESTERASE, URINE NEGATIVE (NEGATIVE); NITRITE,URINE NEGATIVE (NEGATIVE); OCCULT BLOOD,URINE NEGATIVE (NEGATIVE); PROTEIN,URINE NEGATIVE (NEGATIVE); UROBILINOGEN,URINE 0.2 (NORMAL) E.U./dL (NORMAL)
[2024-09-08 11:40] LABS: CLARITY,URINE CLEAR (CLEAR)
[2024-09-08] MEDS: ACETAMINOPHEN 325 MG TABLET PO PRN (12:30)
[2024-09-09 04:42] LABS: HCT - HEMATOCRIT 41.6 % (37.0-47.0); HGB - HEMOGLOBIN 13.5 g/dL (12.0-16.0); MEAN CORPUSCULAR HEMOGLOBIN 28.2 pg (27.0-31.0); MEAN CORPUSCULAR HGB CONC 32.5 g/dL (32.0-36.0); MEAN PLATELET VOLUME 9.4 fL (7.9-10.8); RED BLOOD COUNT 4.78 10^6/uL (4.20-5.40); RED CELL DISTRIBUTION WIDTH 13.3 % (12.0-15.0)
[2024-09-09 04:57] LABS: CALCIUM 8.5 mg/dL (8.5-10.3); CREATININE 0.7 mg/dL (0.6-1.3); POTASSIUM 3.4 mmol/L (3.5-4.5)
[2024-09-09] MEDS: POTASSIUM CHLORIDE 20 MEQ TABLET PO ONE (08:52)
--- NOTE | 2024-09-09 09:07 | XRAY Report ---
PROCEDURE: XR Chest 1V INDICATIONS: Difficulty breathing, dyspnea per notes TECHNIQUE: One view of the chest was acquired. COMPARISON: September 05, 2024 chest x-ray FINDINGS: Mildly progressed, moderate bilateral diffuse peribronchial thickening with patchy opacities. Bronch itis, viral infection, bronchopneumonia, asthma or other process should be considered. Follow-up karla garcia. Low lung volumes with mild bibasilar subsegmental atelectasis unchanged. No pneumothorax, no pleural effusion. Cardiopericardial silhouette and pulmonary vasculature within normal limits. IMPRESSION: Mildly progressed peribronchial thickening and patchy opacities as discussed above. Follow-up is need ed. Reviewed by: Nikolai Cruz MD on 09/09/2024 9:06 AM PST Approved by: Nikolai Cruz MD on 09/09/2024 9:06 AM PST Station ID: [id number]
[2024-09-09] MEDS: IPRATROPIUM/ALBUTEROL 3 ML NEB INH SCH (16:20)
[2024-09-10 06:07] LABS: HCT - HEMATOCRIT 43.3 % (37.0-47.0); HGB - HEMOGLOBIN 14.1 g/dL (12.0-16.0); MEAN CORPUSCULAR HEMOGLOBIN 28.2 pg (27.0-31.0); MEAN CORPUSCULAR HGB CONC 32.6 g/dL (32.0-36.0); MEAN CORPUSCULAR VOLUME 86.6 fL (81.0-99.0); MEAN PLATELET VOLUME 9.8 fL (7.9-10.8); RED CELL DISTRIBUTION WIDTH 13.1 % (12.0-15.0)
[2024-09-10 06:32] LABS: CALCIUM 8.5 mg/dL (8.5-10.3); CREATININE 0.9 mg/dL (0.6-1.3); POTASSIUM 3.4 mmol/L (3.5-4.5)
[2024-09-10 08:51] VITALS: BP 171/89; TEMP 97.7; O2SAT 91
--- NOTE | 2024-09-10 10:21 | Discharge Summary ---
Discharge Summary Admit Date: 09/06/24 Discharge Date: 09/10/24 Discharging Provider: Pilar Code Status: Attempt Resuscitation DIAGNOSES Admission Diagnoses: Acute hypoxic respiratory failure Influenza A Hyperglycemia Leukocytosis Inhalation cannabis use Discharge Diagnoses with Status of Each Condition: Acute hypoxic respiratory failure in the background of asthma exacerbation and influenza type a infection and inhalation cannabis use Now on 2 L nasal cannulae and prednisone taper Influenza A, course of tamiflu Hyperglycemia, resolved Leukocytosis, most likely secondary to steroid use Inhalation cannabis use, counseled against inhalation due to background of asthma HPI History of Present Illness: pt with sob, cough, weakness x 3-4 days. h/o asthma and has been treated as outpt, but never hospitalized for exacerbations. she does smoke cannabis with last usage 3-4 days ago. subjective chills. she was at work a couple of days ago and had to leave after 1.5 hours d/t feeling weak and sob. no known sick contacts or recent travel. was seen in urgent care recently and prescribed medrol dosepak, but still not feeling. h/o ayo. is not on o2 at home. no chest pain. no falls. some nausea but no vomiting. no dysuria or hematuria or abd pain. no ams. lives with mother. HOSPITAL COURSE Hospital Course: Upon admission, patient tested positive for influenza A. Patient was started on Tamiflu twice daily. Patient had some active asthma exacerbation, patient was started on prednisone and will continue with the taper for at home medication. Most likely patient's hyperglycemia was due to her prednisone taper pack from home, A1c was 5.4. Patient continued to be somewhat hypoxic and required 2 L of nasal cannula oxygen during the hospital stay. Patient will be discharged on home O2. Patient was hypoxic at rest with O2 sats to 87% on 2 L nasal cannulae at rest her O2 sats were 95% On 2 L nasal cannulae with exertion her O2 sats are 93% I am ordering home O2 oxygen 2 L nasal cannulae continuous I am also ordering at home nebulizer machine to administer bronchodilators Home oxygen and home nebulizer machine is needed to treat her asthma Patient discharged in stable condition ALLERGIES Allergies Allergy/AdvReac Type Severity Reaction Status Date / Time prednisone Allergy Emesis Verified 09/05/24 23:22 MEDICATIONS Ambulatory Orders Medication Instructions Recorded Confirmed acetaminophen 500 mg tablet 1,000 mg (2 x 500 mg) PO Q8H PRN 01/06/22 09/05/24 (Acetaminophen Extra Strength) Pain #60 tabs albuterol sulfate 90 mcg/actuation 2 inh inhalation Q4H PRN wheezing 08/22/24 09/05/24 aerosol inhaler (Ventolin HFA) lurasidone 120 mg tablet (Latuda) 120 mg PO QDAY 08/22/24 09/05/24 prazosin 2 mg capsule 2 mg PO QPM 08/22/24 09/06/24 benzonatate 100 mg capsule 100 mg PO TID PRN cough #30 caps 09/02/24 09/05/24 lamotrigine 100 mg tablet 100 mg PO DAILY 09/06/24 09/06/24 oseltamivir 75 mg capsule 75 mg PO BID #4 caps 09/10/24 prednisone 5 mg tablets in a dose 5 mg PO DIRECTED #22 ea 09/10/24 pack PHYSICAL EXAM AT DISCHARGE General Appearance: positive No acute distress and Alert Eyes Bilateral: positive Normal inspection and PERRL ENT: positive ENT inspection nml Neck: positive Nml inspection and Trachea midline Respiratory: positive Chest non-tender and No respiratory distress Cardiovascular: positive Regular rate & rhythm and No murmur Abdomen: positive Non-tender and No organomegaly Skin: positive Color nml and No rash Extremities: positive Non-tender and Full ROM Neurologic/Psychiatric: positive Oriented x3 and CN's nml (2-12) LABS 09/10/24 05:42 09/10/24 05:42 DIAGNOSTIC IMAGING Diagnostic Imaging Results: Final report reviewed FOLLOW UP Follow Up: Follow-up with your primary care physician as needed TIME SPENT Time Spent in Discharge (Minutes): 32 Discharge Plan Discharge Patient Disposition: [facility], Self Care Condition: Fair Medically Cleared Date:: 09/10/24 Prescriptions: New oseltamivir 75 mg Capsule 75 mg PO BID Qty: 4 0RF Rx Instructions: Take 1 tab twice daily for 2 days prednisone 5 mg tablets,dose pack 5 mg PO DIRECTED Qty: 22 0RF Rx Instructions: see taper instructions: take tabs with food Day1: take 6 tbs Day2: take 5 tabs Day3: take 4 tabs Day4: take 3 tabs Day5: take 2 tabs Day6: take 1 tab day7: take 1 tab Continued acetaminophen [Acetaminophen Extra Strength] 500 MG tablet 1,000 mg PO Q8H PRN (Reason: Pain) Qty: 60 1RF lamotrigine 100 mg tablet 100 mg PO DAILY lurasidone [Latuda] 120 mg tablet 120 mg PO QDAY Rx Instructions: must administer with food (at least 350 calories) prazosin 2 mg capsule 2 mg PO QPM albuterol sulfate [Ventolin HFA] 90 mcg/actuation HFA aerosol inhaler 2 inh inhalation Q4H PRN (Reason: wheezing) benzonatate 100 mg capsule 100 mg PO TID PRN (Reason: cough) Qty: 30 0RF Discontinued methylprednisolone [Medrol ([place])] 4 mg tablets,dose pack See Rx Instructions PO PER PKG DIR Qty: 21 0RF Rx Instructions: Follow package directions for 6 days. Take in the morning and with food Activity Restrictions: Activity as Tolerated Diet: Regular Assessment: Yes increased risk of infection while on prednisone Plan of Treatment: Wean of home O2 as tolerated, Continue present taper as prescribed Continue Tamiflu as prescribed Patient was hypoxic at rest with O2 sats to 87% on 2 L nasal cannulae at rest her O2 sats were 95% On 2 L nasal cannulae with exertion her O2 sats are 93% I am ordering home O2 oxygen 2 L nasal cannulae continuous I am also ordering at home nebulizer machine to administer bronchodilators Home oxygen and home nebulizer machine is needed to treat her asthma Print Language: Tamazight Patient Instructions: Haemophilus Influenzae Antibody, Asthma Action Plan Stand Alone Forms: PCP List Follow-up Care: Madhav Guevara DO [Provider Admit Priv/Credential] -
[2024-09-10] MEDS: POTASSIUM CHLORIDE 20 MEQ TABLET PO ONE (10:42)
[2024-09-14] MEDS: iohexoL-300 100 ML VIAL IVP ONE (08:05)
== END 2024-09-10 12:45 | disposition home or self-care (01) | DRG 189 ==
LOC: ED 22:58 → ICU 09-06 04:33 → MS2 09-09 18:41
PROVIDERS: ADMIT Student in an Organized Health Care Education/Training Program; ATTEND Student in an Organized Health Care Education/Training Program
DX: R32 Unspecified urinary incontinence; J10.1 Influenza due to other identified influenza virus with other respiratory manifestations; D72.829 Elevated white blood cell count, unspecified; R30.0 Dysuria; J96.01 Acute respiratory failure with hypoxia; F43.10 Post-traumatic stress disorder, unspecified; R73.9 Hyperglycemia, unspecified; H66.93 Otitis media, unspecified, bilateral; J45.901 Unspecified asthma with (acute) exacerbation; G47.33 Obstructive sleep apnea (adult) (pediatric)